=== PATIENT | female | born 1960 | race Caucasian/White ===

== ENCOUNTER → 2021-07-10 10:11 | Outpatient (BNVA) | payer BC, SELFPAY | PROVIDERS: Visit Provider Orthopaedic Surgery ==

== ENCOUNTER 2021-08-05 08:22 | Outpatient (REF) | payer BC, SELFPAY ==
--- NOTE | ~2021-08-05 | XR_ITS ---
EXAMINATION: BILATERAL KNEE X-RAY CLINICAL INFORMATION: Pain COMPARISON: None TECHNIQUE: Standing AP view of both knees and lateral and sunrise view of the left knee FINDINGS: Left knee: There is mild varus angulation at the knee joint. No fracture or dislocation is seen. There is arthritis of the medial femoral tibial and patellofemoral joints with joint space narrowing and osteophyte formation. There is a large joint effusion. Standing AP view of the right knee demonstrates a right knee replacement. XR/XR knee standing BI IMPRESSION: Left knee: Mild varus angulation. Arthritis and large joint effusion.
--- NOTE | ~2021-08-05 | XR_ITS ---
EXAMINATION: BILATERAL KNEE X-RAY CLINICAL INFORMATION: Pain COMPARISON: None TECHNIQUE: Standing AP view of both knees and lateral and sunrise view of the left knee FINDINGS: Left knee: There is mild varus angulation at the knee joint. No fracture or dislocation is seen. There is arthritis of the medial femoral tibial and patellofemoral joints with joint space narrowing and osteophyte formation. There is a large joint effusion. Standing AP view of the right knee demonstrates a right knee replacement. XR/XR knee LT 2V IMPRESSION: Left knee: Mild varus angulation. Arthritis and large joint effusion.
== END 2021-08-05 08:23 | disposition home or self-care (01) ==
LOC: HO.HOSX 08:22
PROVIDERS: Visit Provider Physician Assistant
DX: M17.12 Unilateral primary osteoarthritis, left knee (principal); M25.562 Pain in left knee; M25.561 Pain in right knee
CPT/HCPCS: 73560; 73565

== ENCOUNTER 2021-08-21 08:17 | Outpatient (REF) | payer OTHER, BC, SELFPAY ==
--- NOTE | ~2021-08-21 | XR_ITS ---
EXAMINATION: XR FOOT, RIGHT CLINICAL INFORMATION: Displaced fracture of the fifth metatarsal bone COMPARISON: Previous outside x-ray July 2021 TECHNIQUE: AP, lateral, and oblique views of the right foot. FINDINGS: There is a nondisplaced fracture through the base of the fifth metatarsal bone. Fracture line may be more indistinct suggestive of evidence of healing. No other fracture is seen. There is mild arthritis at the first MTP joint with joint space narrowing and osteophyte formation. There is a small plantar calcaneal spur. XR/XR foot RT min 3V IMPRESSION: Healing nondisplaced fracture base of the fifth metatarsal bone.
== END 2021-08-21 08:18 | disposition home or self-care (01) ==
LOC: HO.HOSX 08:17
PROVIDERS: Visit Provider Orthopaedic Surgery
DX: S92.353A Displaced fracture of fifth metatarsal bone, unspecified foot, initial encounter for closed fracture (principal)
CPT/HCPCS: 73630; 99212

== ENCOUNTER 2021-09-17 10:12 | Outpatient (REF) | payer BC, OTHER, SELFPAY ==
--- NOTE | ~2021-09-17 | XR_ITS ---
EXAMINATION: XR FOOT, RIGHT CLINICAL INFORMATION: Displaced fracture of the fifth metatarsal bone COMPARISON: 08/21/2021 TECHNIQUE: AP, lateral, and oblique views of the right foot. FINDINGS: Transverse fracture at the base of the fifth metatarsal bone is less conspicuous than the prior study with increased callus formation, compatible with healing. There is anatomic alignment. There is diffuse osteopenia. There is narrowing of the DIP and PIP joint spaces. There is narrowing and subchondral cystic change of the first metatarsophalangeal joint. There is mild narrowing of the intertarsal joint spaces. Overlying soft tissues are intact. XR/XR foot RT min 3V IMPRESSION: Healing fracture at the base of the fifth metatarsal bone in anatomic alignment. Osteopenia and degenerative changes of the right foot.
== END 2021-09-17 10:13 | disposition home or self-care (01) ==
LOC: HO.HOSX 10:12
PROVIDERS: PCP Internal Medicine; Visit Provider Orthopaedic Surgery
DX: S92.353D Displaced fracture of fifth metatarsal bone, unspecified foot, subsequent encounter for fracture with routine healing (principal); M17.12 Unilateral primary osteoarthritis, left knee
CPT/HCPCS: 73630

== ENCOUNTER 2021-10-09 13:28 | Outpatient (REF) | payer BC, SELFPAY | END 2021-10-09 13:29 | disposition home or self-care (01) | LOC: HO.LNP 13:28 | PROVIDERS: Visit Provider Orthopaedic Surgery | DX: Z13.89 Encounter for screening for other disorder (principal) ==

== ENCOUNTER → 2021-10-15 10:17 | Outpatient (BNVA) | payer BC, SELFPAY | PROVIDERS: Visit Provider Physician Assistant ==

== ENCOUNTER 2021-10-20 06:09 | Inpatient (IN) | payer BC, SELFPAY ==
[2021-10-09 12:31] VITALS: BP 134/67; PULSE 74; RESP 20; O2SAT 97; BMI 37.3
--- NOTE | 2021-10-09 12:52 | P.CONAN_ITS ---
Documented by User: Polly Martel NP 10/19/21 10:49 HPI - Anesthesia Eval Consult details Narrative: 61yo F for Left Knee Replacement Total PCP cleared [facility] Active Problems Active Problems: All Active Problems (Updated 10/09/21 @ 12:23 by Faby Kline RN) Tricompartment osteoarthritis of left knee (Acute) Fracture of fifth metatarsal bone (Acute) Past Medical History Medical History Anxiety and depression Fracture of fifth metatarsal bone GERD (gastroesophageal reflux disease) Hypothyroid Osteoarthritis Sleep apnea Family History Family history of problems with anesthesia: No Surgical History Surgical History H/O colonoscopy History of decompression of ulnar nerve History of detached retina repair History of dilatation and curettage History of esophagogastroduodenoscopy (EGD) History of salpingectomy History of total right knee replacement Hx of appendectomy Hx of arthroscopy of right knee Hx of elbow surgery Hx of tonsillectomy History of Problems with Anesthesia: No Social History Social History Are you a primary home care associate to a significant other at home: No Do you presently have visiting nurse or other home services: No Patient Tobacco Use Status: Never used Tobacco Use of substances other than those prescribed or required for medical reasons: No Have you been hit, kicked, punched, or otherwise hurt by someone within the past year? If so, by whom?: No Are you DNR?: No Advance Directives: No Advance Directives Information Provided: Yes (refused informational brochure) Advance Directives on File: No Recently lost weight without trying: No Eating poorly because of decreased appetite: No Nutrition Risks: No Nutritional Risk Poor oral hygiene: No Current occupational status: employed Current occupation: [employer] Narrative Narrative: No recent illness Activity limited to pain. No CP/SOB with minimal activity Meds Allergies Allergy/AdvReac Type Severity Reaction Status Date / Time fish derived [fish] Allergy Severe anaphylaxis Verified 10/15/21 10:36 (anchovies) lamotrigine Allergy Intermediate Difficulty Verified 10/15/21 10:36 Breathing Penicillins Allergy Intermediate itch Verified 10/15/21 10:36 Peppers, Jalapeno Allergy Intermediate vomiting/di Verified 10/15/21 10:36 arrhea Sulfa (Sulfonamide Allergy Intermediate bleeding Verified 10/15/21 10:36 Antibiotics) of eye w/sulfa eye drops Home Medications Medication Instructions Recorded Confirmed Last Taken Type bupropion HCl 300 mg 24 hr tablet, 1 tab PO DAILY 10/08/21 10/08/21 Unknown History extended release ipratropium bromide 42 mcg (0.06 1 spray INTRANASAL DAILY 10/08/21 10/08/21 Unknown History %) nasal spray levothyroxine 25 mcg tablet 25 mcg PO 5XW 10/08/21 10/08/21 Unknown History levothyroxine 25 mcg tablet 50 mcg PO 2XW 10/08/21 10/08/21 Unknown History lorazepam 0.5 mg tablet 0.5 tab PO QAM 10/08/21 10/09/21 Unknown History multivitamin 1 tab PO DAILY 10/08/21 10/08/21 Unknown History venlafaxine 75 mg capsule,extended 1 cap PO DAILY 10/08/21 10/08/21 Unknown History release 24 hr acetaminophen 650 mg 1,300 mg PO Q12H 10/09/21 10/09/21 Unknown History tablet,extended release omeprazole 20 mg capsule,delayed 20 mg PO DAILY 10/09/21 10/09/21 Unknown History release Exam Exam Date and Time: October 09, 2021 1252 Height,Weight and Vital Signs: Height 5 ft 6 in Weight 105 kg Last Vital Signs Pulse 74 10/09/21 12:31 Resp 20 10/09/21 12:31 BP 134/67 10/09/21 12:31 Pulse Ox 97 10/09/21 12:31 Pertinent Lab Results Pertinent Lab Results: Laboratory Tests 10/09/21 13:35 Blood Type A Positive Antibody Screen NEGATIVE 09/2021 BMP and CBC done at outside facility WNL Narrative Narrative: EKG 09/2021 NSR @ 65 Airway Loose/Missing/Broken Teeth: No (2 x implants - lower) Heart: RRR Lungs: CTAB Assessment and Plan Assessment Anesthesia Assessment: Anesthesia Plan Discussed and PAT Visit Final Anesthetic Review Family History of Problems with Anesthesia: No History of Problems with Anesthesia: No Documented by User: Wesley Levine MD 10/20/21 08:36 [facility] Past Medical History Medical History Anxiety and depression Fracture of fifth metatarsal bone GERD (gastroesophageal reflux disease) Hypothyroid Osteoarthritis Sleep apnea Surgical History Surgical History H/O colonoscopy History of decompression of ulnar nerve History of detached retina repair History of dilatation and curettage History of esophagogastroduodenoscopy (EGD) History of salpingectomy History of total right knee replacement Hx of appendectomy Hx of arthroscopy of right knee Hx of elbow surgery Hx of tonsillectomy Social History Social History Are you a primary home care associate to a significant other at home: No Do you presently have visiting nurse or other home services: No Patient Tobacco Use Status: Never used Tobacco Use of substances other than those prescribed or required for medical reasons: No Have you been hit, kicked, punched, or otherwise hurt by someone within the past year? If so, by whom?: No Are you DNR?: No Advance Directives: No Advance Directives Information Provided: Yes (refused informational brochure) Advance Directives on File: No Recently lost weight without trying: No Eating poorly because of decreased appetite: No Nutrition Risks: No Nutritional Risk Poor oral hygiene: No Current occupational status: employed Current occupation: [employer] Meds Allergies Allergy/AdvReac Type Severity Reaction Status Date / Time fish derived [fish] Allergy Severe anaphylaxis Verified 10/15/21 10:36 (anchovies) lamotrigine Allergy Intermediate Difficulty Verified 10/15/21 10:36 Breathing Penicillins Allergy Intermediate itch Verified 10/15/21 10:36 Peppers, Jalapeno Allergy Intermediate vomiting/di Verified 10/15/21 10:36 arrhea Sulfa (Sulfonamide Allergy Intermediate bleeding Verified 10/15/21 10:36 Antibiotics) of eye w/sulfa eye drops Home Medications Medication Instructions Recorded Confirmed Last Taken Type bupropion HCl 300 mg 24 hr tablet, 1 tab PO DAILY 10/08/21 10/08/21 Unknown History extended release ipratropium bromide 42 mcg (0.06 1 spray INTRANASAL DAILY 10/08/21 10/08/21 Unknown History %) nasal spray levothyroxine 25 mcg tablet 25 mcg PO 5XW 10/08/21 10/08/21 Unknown History levothyroxine 25 mcg tablet 50 mcg PO 2XW 10/08/21 10/08/21 Unknown History lorazepam 0.5 mg tablet 0.5 tab PO QAM 10/08/21 10/09/21 Unknown History multivitamin 1 tab PO DAILY 10/08/21 10/08/21 Unknown History venlafaxine 75 mg capsule,extended 1 cap PO DAILY 10/08/21 10/08/21 Unknown History release 24 hr acetaminophen 650 mg 1,300 mg PO Q12H 10/09/21 10/09/21 Unknown History tablet,extended release omeprazole 20 mg capsule,delayed 20 mg PO DAILY 10/09/21 10/09/21 Unknown History release Exam Airway Mallampati Class: II TM Dist: >3cm Neck ROM: Full Assessment and Plan Final Anesthetic Review ASA Class: III Final Preanesthetic Review: No Changes in Pt Med Stat, Meds/Allgs Chart Reviewed, Consent Obtained/Reviewed and Anes Risks/Benef Reviewed Patient Risk: Intermediate Procedure Risk: Intermediate Anesthetic Plan Anesthetic Plan: MAC:, Spinal and Regional Block Disposition: Standard PACU
[2021-10-09 15:56] LABS: MRSA Nasal PCR NEGATIVE (Negative); SA Nasal PCR NEGATIVE (Negative)
[2021-10-20] VITALS (18 sets, daily range): BP systolic 116–163; BP diastolic 53–93; PULSE 56–72; RESP 16–20; TEMP 36.4–37.1; O2SAT 94–99
--- NOTE | ~2021-10-20 | XR_ITS ---
EXAMINATION: XR KNEE, LEFT CLINICAL INFORMATION: Left knee pain postop. COMPARISON: None TECHNIQUE: 3 views of the left knee. FINDINGS: There are immediate postoperative changes following total knee prosthesis with the prosthetic components in satisfactory alignment. No fracture seen. XR/XR knee LT 2V IMPRESSION: Total left knee prosthesis with prosthetic components in satisfactory alignment. There are immediate postoperative changes visualized.
[2021-10-20 06:40] LABS: COVID-19 Test Negative (Negative); IDNOW Serial# 9DD0AD1C
[2021-10-20] MEDS: Lactated Ringers 1,000 ML 100 ML IVCONT (06:59)
[2021-10-20] MEDS: ceFAZolin Sodium/Dextrose,Iso 2 GM/50 ML PIGGYBACK IV ×2 (08:06→13:30)
--- NOTE | 2021-10-20 10:41 | MHC.SHP ---
Pre-Procedural Eval Section A Date of Service: 10/20/21 The patient is an INPATIENT: No Changes since office visit: Yes Patient answered all questions; No Cold of Flu in the past 2 weeks, No New Medical Problems and No Changes in Medication The History & Physical has been completed within 30 days and I have reviewed it.: Yes Section B Chief Complaint: Osteoarthritis Left Knee Allergies: Allergies Allergy/AdvReac Type Severity Reaction Status Date / Time fish derived [fish] Allergy Severe anaphylaxis Verified 10/15/21 10:36 (anchovies) lamotrigine Allergy Intermediate Difficulty Verified 10/15/21 10:36 Breathing Penicillins Allergy Intermediate itch Verified 10/15/21 10:36 Peppers, Jalapeno Allergy Intermediate vomiting/di Verified 10/15/21 10:36 arrhea Sulfa (Sulfonamide Allergy Intermediate bleeding Verified 10/15/21 10:36 Antibiotics) of eye w/sulfa eye drops Plan I have reviewed the history and physical and performed a pertinent physical examination on my patient. No changes have occurred unless specified.
--- NOTE | 2021-10-20 10:41 | PM.OP ---
Brief Operative Note Date of Service: 10/20/21 Pre-op diagnosis: left knee oa Post-op diagnosis: same Procedure: Left TKA Implants: Stryler triathalon CR press fit Surgeon: Gerson Germain MD Anesthesia: regional and spinal Was an Electrical Transmission Engineer used for this Procedure?: Yes Electrical Transmission Engineer: Chao Wheeler Estimated blood loss (mL): 200 IV fluids (mL): 1,000 Pathology: other Condition: stable Disposition: PACU
--- NOTE | 2021-10-20 10:44 | P.OP_ITS ---
Operative Note Operative Note Date of Service: 10/20/21 Narrative: Date of Service: 10/20/21 Pre-op diagnosis: left knee oa Post-op diagnosis: same Procedure: Left TKA Implants: Stryler triathalon CR press fit Surgeon: Gerson Germain MD Anesthesia: regional and spinal Was an Merit System Director used for this Procedure?: Yes Merit System Director: Chao Wheeler Estimated blood loss (mL): 200 IV fluids (mL): 1,000 Pathology: other Condition: stable Disposition: PACU Procedure in detail: The patient was brought to the operating room and prepped and draped in standard sterile fashion. A time-out was called to identify proper site proper procedure proper surgeon and IV antibiotics were administered. 1 g of IV tranexamic acid WAS administered. I began by making a midline incision to the retinaculum and performed a medial parapatellar arthrotomy. The patella was translated laterally and the knee was flexed up. The anterior and medial compartments were eburnated with large patellar osteophytes and 10 deg of varus iwth a 5 deg flexion contracture. I performed a small medial peel and resected the infrapatellar fat pad. Blanche's line was then used to drill my intramedullary femoral guide and an 11 mm distal femoral cut was made in 5 degrees of valgus while protecting the soft tissues. I then measured a # 4 femur and placed my cutting guide and made my anterior posterior and chamfer cuts protecting the soft tissues at all times. Once I was satisfied with my cuts I turned my attention to the tibia. I removed the meniscus and , using an external cutting guide, in line with the tibial crest and the third ray, I made my distal tibial cut in 3 deg slope of while protecting the PCL the posterior soft tissues at all times. An extension block was used to confirm appropriate amount of bony resection. I then sized a #5 tibia and once I was satisfied that there was complete tibial coverage I placed my trial and with the trial femur in place took the knee through range of motion. I was satisfied with the extension and flexion as well as the stability at 0, 30 and 90 degrees. I then turned my attention to the patella where I removed 1 cm from the undersurface of the patella and then trialed a 32a patellar button. Again the knee was taken through range of motion I was satisfied with the tracking. I then returned to the femur and drilled my femoral lug holes and prepared the tibia. A femoral bone plug was placed and the knee was irrigated copiously. I then press fit the patella, tibia and femur in standard fashion. I trialed different inserts until I selected a #12mm insert. The final insert was placed and a 3 minutes iodine soak with local TXA was performed. The knee was then closed with a running Quill suture, a 3 0 Vicryl and edanna on the skin. Patient was then placed in sterile dressing and brought to recovery room in stable condition there were no known complications.
[2021-10-20] MEDS: Dextrose 5 % and 0.45 % NaCl 1,000 ML 80 ML IVCONT ×2 (11:38→22:44)
[2021-10-20] MEDS: HYDROmorphone HCl 0.5 MG/0.5 ML SYRINGE 0.25 MG IVPUSH ×2 (15:39→21:40)
[2021-10-20] MEDS: oxyCODONE HCl Immed Release 5 MG TABLET PO (15:50)
[2021-10-20] MEDS: oxyCODONE HCl Immed Release 5 MG TABLET 10 MG PO ×2 (18:37→22:43)
[2021-10-20] MEDS: Celecoxib 200 MG CAPSULE PO (21:30)
[2021-10-20] MEDS: Docusate Sodium 100 MG CAPSULE PO (21:31)
[2021-10-20] MEDS: oxyCODONE HCl ER 10 MG TAB.ER.12H PO (21:31)
[2021-10-21] VITALS (8 sets, daily range): BP systolic 120–141; BP diastolic 63–69; PULSE 73–83; RESP 17–19; TEMP 36–37.1; O2SAT 92–95
[2021-10-21] MEDS: oxyCODONE HCl Immed Release 5 MG TABLET 10 MG PO ×6 (01:11→20:14)
[2021-10-21] MEDS: diphenhydrAMINE HCL 25 MG TABLET 50 MG PO (02:41)
[2021-10-21 05:45] LABS: MANUAL DIFF FLAG NO
[2021-10-21 05:50] LABS: Basophils Percent Auto 0.2 % (0-2); Eosinophils Percent Auto 0.5 % (0-4); Hematocrit 33.7 % (37.0-47.0); Hemoglobin 10.7 g/dl (12.0-16.0); Imm Gran Abs Auto 0.03 X10*3/uL (0.00-0.03); Imm Gran Pct Auto 0.3 % (0.0-0.4); Lymphocytes Absolute Auto 1.9 X10*3/uL (1.2-4.9); Lymphocytes Percent Auto 21.2 % (20-40); Mean Corpuscular HGB Conc 31.8 g/dl (31.0-35.0); Mean Corpuscular Hemoglobin 30.3 pg (27.0-33.0); Mean Corpuscular Volume 95.5 fL (80.0-98.0); Monocytes Absolute Auto 0.9 X10*3/uL (0.1-1.2); Monocytes Percent Auto 10.6 % (2-11); Neutrophils Absolute Auto 5.9 x10*3/uL (2.0-8.3); Neutrophils Percent Auto 67.2 % (45-73); Platelet Count 241 X10*3/uL (160-400); Red Blood Count 3.53 X10*6/uL (4.20-5.50); Red Cell Distribution Width 13.1 % (11.0-16.0); White Blood Count 8.8 X10*3/uL (4.8-10.8)
[2021-10-21 06:07] LABS: Anion Gap 9 (12-20); Blood Urea Nitrogen 19 mg/dL (9-16); Calcium 8.5 mg/dL (8.4-10.2); Carbon Dioxide 30 mmol/L (22-29); Chloride 106 mmol/L (96-108); Creatinine Clr Calc Pharmacy 85.1; Estimated Glomerular Filt Rate > 60; Glucose Fasting 113 mg/dL (60-99); Potassium 3.7 mmol/L (3.3-5.1); Sodium 141 mmol/L (135-145)
[2021-10-21] MEDS: Levothyroxine Sodium 25 MCG TABLET PO (06:27)
[2021-10-21] MEDS: Omeprazole 20 MG CAPSULE.DR PO (06:27)
[2021-10-21] MEDS: LORazepam 0.5 MG TABLET 0.25 MG PO (08:17)
[2021-10-21] MEDS: oxyCODONE HCl ER 10 MG TAB.ER.12H PO ×2 (08:17→20:14)
[2021-10-21] MEDS: Venlafaxine HCl ER 75 MG CAP.ER.24H PO (08:17)
--- NOTE | 2021-10-21 08:17 | PM.PNORT ---
Subjective Subjective Date of Service: 10/21/21 Interval history: POD1 Status post left knee TKA with Dr. Germain. Patient states that overnight she was having some difficulty with pain management. Pain medication was adjusted overnight accordingly. Patient worked with Physical therapy this morning and stated that she did very well. Her pain is managed this morning. She reports that she is still feeling itchy despite ordering Benadryl last night. Physical Exam Vital Signs: Vital Signs: Last Vital Signs Temp 98.7 F 10/21/21 00:09 Pulse 73 10/21/21 07:48 Resp 18 10/21/21 05:43 BP 141/68 H 10/21/21 07:48 Pulse Ox 92 10/21/21 07:48 BMI result Body Mass Index 37.3 Const: General: cooperative, healthy appearing and no acute distress Resp: Effort & Inspection: normal respiratory effort and able to speak in complete sentences Cardio: Rate: regular rate Peripheral pulses: Peripheral pulses 2+ throughout GI: Palpation (GI): Soft to palpation Skin: Lesions: no lesions Rashes: no rashes Extrem: Other: Left knee Aquacel is clean dry and intact. No effusion or drainage. Patient is able to dorsiflex and plantar flex without any deficits. Pedal pulse intact. Sensation intact. Procedures Date of Service Date of Service: 10/21/21 Progress Note: A&P Assessment and plan (1) S/P total knee arthroplasty: Status: Acute Assessment and Plan: Continue pain mgmnt Begin ASA for dvt ppx begin PT for LT TKA Dispo planning-Pending PT eval, pain mgmnt Fall Risk Details Current Medications: Current Medications Acetaminophen (Acetaminophen 325 Mg Tablet) 650 mg PO Q6H PRN PRN Reason: Pain, Mild (Pain Scale 1-3) Aspirin (Aspirin 325 Mg Tablet) 325 mg PO BID [facility] Bupropion HCl (Bupropion Hcl Xl 300 Mg Tab.Er.24h) 300 mg PO DAILY [facility] Celecoxib (Celecoxib 200 Mg Capsule) 200 mg PO BID [facility] Last Admin: 10/20/21 21:30 Dose: 200 mg Documented by: Docusate Sodium (Docusate Sodium 100 Mg Capsule) 100 mg PO BID [facility] Last Admin: 10/20/21 21:31 Dose: 100 mg Documented by: Hydromorphone HCl (Hydromorphone Hcl 0.5 Mg/0.5 Ml Syringe) 0.5 mg IVPUSH Q4H PRN; Protocol PRN Reason: Pain, Severe (Pain Scale 7-10) Dextrose/Sodium Chloride (D51/2ns) 1,000 mls @ 80 mls/hr IVCONT .[id number] [facility] Last Admin: 10/20/21 22:44 Dose: 80 mls/hr Documented by: Ipratropium [place] (Ipratropium [place] Celest[place] 0.06 % 15 Ml [place]) 1 spray NOSTRIL-B DAILY [facility] Levothyroxine Sodium (Levothyroxine Sodium 25 Mcg Tablet) 25 mcg PO MoTuWeThFr@0600 [facility] Last Admin: 10/21/21 06:27 Dose: 25 mcg Documented by: Levothyroxine Sodium (Levothyroxine Sodium 50 Mcg Tablet) 50 mcg PO SuSa@0600 [facility] Lorazepam (Lorazepam 0.5 Mg Tablet) 0.25 mg PO DAILY [facility] Omeprazole (Omeprazole 20 Mg Capsule.Dr) 20 mg PO DAILY@0630 [facility] Last Admin: 10/21/21 06:27 Dose: 20 mg Documented by: Ondansetron HCl (Ondansetron Hcl 4 Mg/2 Ml Vial) 4 mg IVPUSH Q8H PRN PRN Reason: Nausea and Vomiting Oxycodone HCl (Oxycodone Hcl Er 10 Mg Tab.Er.12h) 10 mg PO BID [facility] Last Admin: 10/20/21 21:31 Dose: 10 mg Documented by: Oxycodone HCl (Oxycodone Hcl Immed Release 5 Mg Tablet) 10 mg PO Q4H [facility] Last Admin: 10/21/21 06:27 Dose: 10 mg Documented by: Sodium Chloride (0.9 % Sodium Chloride Flush 3 Ml Syringe) 3 ml IVFLUSH QSHIFT [facility] Last Admin: 10/21/21 01:12 Dose: Not Given Documented by: Venlafaxine HCl (Venlafaxine Hcl Er 75 Mg Cap.Er.24h) 75 mg PO DAILY [facility] Time Spent With Patient Time: Total time spent is greater than 50% in coordination of care (as documented) at patient's floor/unit and/or counseling patient: Time with patient: less than 15 minutes Quality Stroke Does the patient have a stroke diagnosis?: No VTE Prior VTE?: No VTE Risk Level:: Surgical - high VTE Device Contraindication: N/A - Device Ordered VTE Drug Contraindication: N/A - Med Ordered
[2021-10-21] MEDS: Celecoxib 200 MG CAPSULE PO ×2 (08:18→20:14)
[2021-10-21] MEDS: Aspirin 325 MG TABLET PO ×2 (08:18→20:14)
[2021-10-21] MEDS: Docusate Sodium 100 MG CAPSULE PO ×2 (08:18→20:14)
[2021-10-21] MEDS: buPROPion HCl XL 300 MG TAB.ER.24H PO (08:18)
--- NOTE | 2021-10-21 09:35 | HO.POSTANES ---
Post Anesthesia Evaluation Post Anesthesia Evaluation Vital Signs: Vital Signs Temp Pulse Resp BP Pulse Ox 10/21/21 07:48 73 141/68 H 92 10/21/21 05:43 18 10/21/21 00:09 98.7 F 73 19 141/68 H 92 10/20/21 22:17 70 20 133/64 94 Anesthesia: Spinal and Nerve Block Mental Status: Awake Pain Control: Satisfactory Nausea/Vomiting: None Hydration: Adequate Anesthesia-Related Issues: No Anes. Related Issues
--- NOTE | 2021-10-21 10:26 | MHC.CM.PN ---
EMR REVIEWED, PT S/P L TKA, CM MET W/PT WHO IS A&OX4, PT REPORTS SHE LIVES ALONE IN AN APT AND HAS ONE STEP TO GET IN AND A HALF BATH ON THE FIRST FLOOR, PT REPORTS SHE WILL SLEEP ON HER PULL OUT SOFA SO SHE DOES NOT HAVE TO DO THE STAIRS TO GET TO HER BEDROOM, PT HAS A CANE AND WALKER FOR DME, NO HOME SERVICES AND PREFERS TO D/C HOME W/SERVICES, PT REPORTS SHE HAS NO PREFERENCE OF VNA'S HOWEVER DID USE [facility] FOR HER R KNEE, PT IS OK W/ANY [facility]NA SERVICE, PT VERIFIES PCP STAN ACEVEDO AND WOULD LIKE TO COMPLETE A HCP W/CM PRIOR TO D/C. D/C PLAN: HOME W/[facility] HOME PT, FRIEND/FAMILY FR TRANSPORT
--- NOTE | 2021-10-21 11:42 | PM.IMCN ---
History of Present Illness Data of Consult Service Date: 10/21/21 Primary Care Provider: Randa Wick MD HPI Reason for consult: left knee pain 61F presented for elected left tka, medicine consulted for comorbidities of hypothyroid, depression/anxiety, GERD. patient reporting some pruritis with oxycodone, otherwise doing well postop, denies chest pain, fever, chills, sob. Review of Systems Review of Systems: Constitutional: Denies fever, denies Chills Eyes: denies blurry vision ENT: denies sore throat CVS: denies chest pain Respiratory: Denies dyspnea GI: no abdominal pain : denies dysuria MSK: denies neck pain Skin: denies rash Neuro: denies specific motor weakness Psych: denies suicidal ideation Endocrine: denies heat/cold intolerance Hematologic: denies easy bleeding Allergy: denies hives [facility] Medical History (Updated 10/21/21 @ 11:45 by Yfn Bowling MD) Anxiety and depression Fracture of fifth metatarsal bone GERD (gastroesophageal reflux disease) Hypothyroid Osteoarthritis Sleep apnea Pertinent family history: denies premature cad Surgical History H/O colonoscopy History of decompression of ulnar nerve History of detached retina repair History of dilatation and curettage History of esophagogastroduodenoscopy (EGD) History of salpingectomy History of total right knee replacement Hx of appendectomy Hx of arthroscopy of right knee Hx of elbow surgery Hx of tonsillectomy Social History Household Members: None Housing: Apartment Are you a primary healthcare consulting manager to a significant other at home: No Do you presently have visiting nurse or other home services: No Patient Tobacco Use Status: Never used Tobacco service: No Current occupational status: employed Current occupation: [employer]/rt handed Meds Allergies Allergy/AdvReac Type Severity Reaction Status Date / Time fish derived [fish] Allergy Severe anaphylaxis Verified 10/15/21 10:36 (anchovies) lamotrigine Allergy Intermediate Difficulty Verified 10/15/21 10:36 Breathing Penicillins Allergy Intermediate itch Verified 10/15/21 10:36 Peppers, Jalapeno Allergy Intermediate vomiting/di Verified 10/15/21 10:36 arrhea Sulfa (Sulfonamide Allergy Intermediate bleeding Verified 10/15/21 10:36 Antibiotics) of eye w/sulfa eye drops Active Medications: Current Medications Acetaminophen (Acetaminophen 325 Mg Tablet) 650 mg PO Q6H PRN PRN Reason: Pain, Mild (Pain Scale 1-3) Aspirin (Aspirin 325 Mg Tablet) 325 mg PO BID [facility] Last Admin: 10/21/21 08:18 Dose: 325 mg Documented by: Bupropion HCl (Bupropion Hcl Xl 300 Mg Tab.Er.24h) 300 mg PO DAILY [facility] Last Admin: 10/21/21 08:18 Dose: 300 mg Documented by: Celecoxib (Celecoxib 200 Mg Capsule) 200 mg PO BID [facility] Last Admin: 10/21/21 08:18 Dose: 200 mg Documented by: Docusate Sodium (Docusate Sodium 100 Mg Capsule) 100 mg PO BID [facility] Last Admin: 10/21/21 08:18 Dose: 100 mg Documented by: Hydromorphone HCl (Hydromorphone Hcl 0.5 Mg/0.5 Ml Syringe) 0.5 mg IVPUSH Q4H PRN; Protocol PRN Reason: Pain, Severe (Pain Scale 7-10) Ipratropium [place] (Ipratropium [place] Celestino 0.06 % 15 Ml [place]) 1 spray NOSTRIL-B DAILY [facility] Last Admin: 10/21/21 08:14 Dose: Not Given Documented by: Levothyroxine Sodium (Levothyroxine Sodium 25 Mcg Tablet) 25 mcg PO MoTuWeThFr@0600 [facility] Last Admin: 10/21/21 06:27 Dose: 25 mcg Documented by: Levothyroxine Sodium (Levothyroxine Sodium 50 Mcg Tablet) 50 mcg PO SuSa@0600 [facility] Lorazepam (Lorazepam 0.5 Mg Tablet) 0.25 mg PO DAILY [facility] Last Admin: 10/21/21 08:17 Dose: 0.25 mg Documented by: Omeprazole (Omeprazole 20 Mg Capsule.) 20 mg PO DAILY@0630 [facility] Last Admin: 10/21/21 06:27 Dose: 20 mg Documented by: Ondansetron HCl (Ondansetron Hcl 4 Mg/2 Ml Vial) 4 mg IVPUSH Q8H PRN PRN Reason: Nausea and Vomiting Oxycodone HCl (Oxycodone Hcl Er 10 Mg Tab.Er.12h) 10 mg PO BID [facility] Last Admin: 10/21/21 08:17 Dose: 10 mg Documented by: Oxycodone HCl (Oxycodone Hcl Immed Release 5 Mg Tablet) 10 mg PO Q4H PRN PRN Reason: Pain, Moderate (Pain Scale 4-6 Last Admin: 10/21/21 11:38 Dose: 10 mg Documented by: Sodium Chloride (0.9 % Sodium Chloride Flush 3 Ml Syringe) 3 ml IVFLUSH QSHIFT [facility] Last Admin: 10/21/21 08:18 Dose: Not Given Documented by: Venlafaxine HCl (Venlafaxine Hcl Er 75 Mg Cap.Er.24h) 75 mg PO DAILY [facility] Last Admin: 10/21/21 08:17 Dose: 75 mg Documented by: Home Medications Medication Instructions Recorded Confirmed Last Taken Type bupropion HCl 300 mg 24 hr tablet, 1 tab PO DAILY 10/08/21 10/08/21 Unknown History extended release ipratropium bromide 42 mcg (0.06 1 spray INTRANASAL DAILY 10/08/21 10/08/21 Unknown History %) nasal spray levothyroxine 25 mcg tablet 25 mcg PO 5XW 10/08/21 10/08/21 Unknown History levothyroxine 25 mcg tablet 50 mcg PO 2XW 10/08/21 10/08/21 Unknown History lorazepam 0.5 mg tablet 0.5 tab PO QAM 10/08/21 10/09/21 Unknown History multivitamin 1 tab PO DAILY 10/08/21 10/08/21 Unknown History venlafaxine 75 mg capsule,extended 1 cap PO DAILY 10/08/21 10/08/21 Unknown History release 24 hr acetaminophen 650 mg 1,300 mg PO Q12H 10/09/21 10/09/21 Unknown History tablet,extended release omeprazole 20 mg capsule,delayed 20 mg PO DAILY 10/09/21 10/09/21 Unknown History release Physical Exam Vital Signs and Narrative: Vital Signs: Last Vital Signs Temp 98.3 F 10/21/21 10:00 Pulse 75 10/21/21 10:00 Resp 18 10/21/21 10:00 BP 133/63 10/21/21 10:00 Pulse Ox 95 10/21/21 10:00 BMI result Body Mass Index 37.3 General: no acute distress HEENT: atraumatic Neck: normal to visual inspection CVS: S1, S2, RRR Resp: CTA bilateral Chest: non tender GI: soft, non tender, non distended : no CVA tenderness Skin: no rashes Extremities: no edema Neuro: Oriented X3, grossly intact Psych: cooperative Results Labs CBC and Chem 7: 10/21/21 05:38 10/21/21 05:38 Labs: Laboratory Results - last 24 hr 10/21/21 10/21/21 05:38 05:38 MCV 95.5 MCH 30.3 MCHC 31.8 RDW 13.1 Plt Count 241 MPV 10.0 Immature Gran % (Auto) 0.3 Neut % (Auto) 67.2 Lymph % (Auto) 21.2 [place] % (Auto) 10.6 Eos % (Auto) 0.5 Baso % (Auto) 0.2 Lymph # (Auto) 1.9 [place] # (Auto) 0.9 Eos # (Auto) 0.0 Baso # (Auto) 0.0 Abs Immat Gran (auto) 0.03 Absolute Neuts (auto) 5.9 Absolute Nucleated RBC 0.000 Nucleated RBC % (auto) 0.0 Anion Gap 9 L Estim Creat Clear Calc 85.1 Estimated GFR > 60 Fasting Glucose 113 H Calcium 8.5 Assessment and Plan (1) Hypothyroid: Status: Acute 61F presented for elected left tka left tka pod 1 management per ortho depression/anxiety continue ativan, wellbutrin, effexor hypothyroid synthroid gerd ppi
--- NOTE | 2021-10-21 11:48 | MHC.CM.PN ---
CM MET W/PT TO COMPLETE HCP, PT PROVIDED EDUCATIONAL INFO AND HAS NAMED HER SISTER CLEMENTE ERAZO [phone] HER HEALTH CARE AGENT AND HER NIECE DAMARIS FREEMAN [phone] HER ALTERNATE.
--- NOTE | 2021-10-21 11:53 | PC.NURSE ---
Wound assessment completed. Patient had a left knee replacement, surgical incision and bandage C/D/I. No other skin issues noted at this time.
[2021-10-21] MEDS: Acetaminophen 325 MG TABLET 650 MG PO (14:29)
[2021-10-21] MEDS: 0.9 % Sodium Chloride Flush 3 ML SYRINGE IVFLUSH (15:57)
[2021-10-22] MEDS: 0.9 % Sodium Chloride Flush 3 ML SYRINGE IVFLUSH ×2 (01:11→08:33)
[2021-10-22] MEDS: oxyCODONE HCl Immed Release 5 MG TABLET 10 MG PO ×2 (01:13→08:33)
[2021-10-22 03:00] VITALS: BP 113/53; PULSE 75; RESP 18; TEMP 36.3; O2SAT 94
[2021-10-22 05:40] LABS: MANUAL DIFF FLAG NO
[2021-10-22 05:44] LABS: Basophils Absolute Auto 0.1 X10*3/uL (0.0-0.2); Basophils Percent Auto 0.8 % (0-2); Eosinophils Absolute Auto 0.2 X10*3/uL (0.0-0.4); Eosinophils Percent Auto 2.6 % (0-4); Hematocrit 31.2 % (37.0-47.0); Hemoglobin 10.1 g/dl (12.0-16.0); Imm Gran Abs Auto 0.03 X10*3/uL (0.00-0.03); Imm Gran Pct Auto 0.4 % (0.0-0.4); Lymphocytes Absolute Auto 1.8 X10*3/uL (1.2-4.9); Lymphocytes Percent Auto 21.3 % (20-40); Mean Corpuscular HGB Conc 32.4 g/dl (31.0-35.0); Mean Corpuscular Hemoglobin 30.6 pg (27.0-33.0); Mean Corpuscular Volume 94.5 fL (80.0-98.0); Mean Platelet Volume 10.4 fL (9.4-12.3); Monocytes Absolute Auto 0.8 X10*3/uL (0.1-1.2); Monocytes Percent Auto 9.5 % (2-11); Neutrophils Absolute Auto 5.6 x10*3/uL (2.0-8.3); Neutrophils Percent Auto 65.4 % (45-73); Platelet Count 219 X10*3/uL (160-400); Red Cell Distribution Width 13.2 % (11.0-16.0); White Blood Count 8.6 X10*3/uL (4.8-10.8)
[2021-10-22 06:07] LABS: Anion Gap 11 (12-20); Blood Urea Nitrogen 22 mg/dL (9-16); Calcium 8.3 mg/dL (8.4-10.2); Carbon Dioxide 25 mmol/L (22-29); Chloride 105 mmol/L (96-108); Creatinine Clr Calc Pharmacy 74.5; Estimated Glomerular Filt Rate 58; Glucose Fasting 111 mg/dL (60-99); Potassium 3.9 mmol/L (3.3-5.1); Sodium 137 mmol/L (135-145)
[2021-10-22] MEDS: Omeprazole 20 MG CAPSULE.DR PO (06:18)
[2021-10-22] MEDS: Levothyroxine Sodium 25 MCG TABLET PO (06:18)
[2021-10-22 07:00] VITALS: BP 153/67; PULSE 82; RESP 18; TEMP 36.6; O2SAT 95
--- NOTE | 2021-10-22 07:58 | PM.DS ---
DS: Providers Provider Date of Service: 10/22/21 Date of admission: 10/20/21 06:09 Primary care physician: Randa Wick MD Consults: 10/20/21 17:35 Consult to Hospitalist Routine Consulting Provider: Hospitalist Reason For Exam: post op medical management DS: Diagnosis Discharge Diagnosis (1) Hypothyroid: Status: Acute DS: Summary Hospital Course Hospital Course: The patient underwent a successful left total knee arthroplasty, they were transferred to PACU and then to the floor to recover. During their stay, their vitals were stable, afebrile at 97.0. Labs were unremarkable, H/H 10.1/31.2. POD 1 they were started on Aspirin 325mg po bid for DVT ppx, they also received Physical Therapy services twice a day. Prior to discharge, their dressing was changed, incision clean dry and intact, new Aquacel dressing applied and the plan was to be discharged home with VNA services. Time Spent with Patient Time attestation: Total time spent providing and/or coordinating discharge services: Discharge coordination time: Less than 30 minutes Quality: Stroke Does the patient have a stroke diagnosis?: No Physical Exam Vital Signs: Vital Signs: Last Vital Signs Temp 97.8 F 10/22/21 07:00 Pulse 82 10/22/21 07:00 Resp 18 10/22/21 07:00 BP 153/67 H 10/22/21 07:00 Pulse Ox 95 10/22/21 07:00 BMI result Body Mass Index 37.3 Const: General: cooperative, healthy appearing and no acute distress Resp: Effort & Inspection: normal respiratory effort and able to speak in complete sentences Cardio: Rate: regular rate Peripheral pulses: Peripheral pulses 2+ throughout GI: Palpation (GI): Soft to palpation Skin: Lesions: no lesions Rashes: no rashes Extrem: Other: Left knee not erythema or drainage. Prospect intact. New Aquacel dressing applied. NVI. DS: Data Data Completed and Pending Pending studies at discharge: Pending at discharge 10/20/21 09:58 Surgical [PTH] Routine Labs on day of discharge: Laboratory Results - last 24 hr 10/22/21 10/22/21 04:54 04:54 WBC 8.6 RBC 3.30 L Hgb 10.1 L Hct 31.2 L MCV 94.5 MCH 30.6 MCHC 32.4 RDW 13.2 Plt Count 219 MPV 10.4 Immature Gran % (Auto) 0.4 Neut % (Auto) 65.4 Lymph % (Auto) 21.3 [place] % (Auto) 9.5 Eos % (Auto) 2.6 Baso % (Auto) 0.8 Lymph # (Auto) 1.8 [place] # (Auto) 0.8 Eos # (Auto) 0.2 Baso # (Auto) 0.1 Abs Immat Gran (auto) 0.03 Absolute Neuts (auto) 5.6 Absolute Nucleated RBC 0.000 Nucleated RBC % (auto) 0.0 Sodium 137 Potassium 3.9 Chloride 105 Carbon Dioxide 25 Anion Gap 11 L BUN 22 H Creatinine 0.97 Estim Creat Clear Calc 74.5 Estimated GFR 58 Fasting Glucose 111 H Calcium 8.3 L Discharge Plan Discharge Patient Disposition: Home Health Service Discharge Diagnosis: s/p TKA LT Referrals: Walter QUINN [Outside] - 1 Day (home physical therapy) Chao Wheeler PA-C [Physician [employer]] - 1 Week (11/05/20 a 2:00pm and then will have PT in the office ) Discharge Medications: New acetaminophen 325 mg Tablet 650 mg PO Q6H PRN (Reason: Pain, Mild (Pain Scale 1-3)) 30 Days Qty: 240 RF: 0 aspirin 325 mg Tablet 325 mg PO BID 42 Days Qty: 84 RF: 0 celecoxib 200 mg Capsule 200 mg PO BID 30 Days Qty: 60 RF: 0 docusate sodium 100 mg Capsule 100 mg PO BID 30 Days Qty: 60 RF: 0 oxycodone 5 mg Tablet 10 mg PO Q4H PRN (Reason: Pain, Moderate (Pain Scale 4-6) 7 Days Qty: 42 RF: 0 Continued multivitamin Tablet 1 tab PO DAILY RF: 0 venlafaxine 75 mg capsule,extended release 24hr 1 cap PO DAILY RF: 0 levothyroxine 25 mcg tablet 25 mcg PO 5XW RF: 0 levothyroxine 25 mcg tablet 50 mcg PO 2XW RF: 0 lorazepam 0.5 mg tablet 0.5 tab PO QAM RF: 0 ipratropium bromide 42 mcg (0.06 %) spray,non-aerosol 1 spray intranasal DAILY RF: 0 bupropion HCl 300 mg tablet extended release 24 hr 1 tab PO DAILY RF: 0 acetaminophen 650 mg Tablet Extended Release 1,300 mg PO Q12H RF: 0 omeprazole 20 mg Capsule,Delayed Release(Dr/Ec) 20 mg PO DAILY RF: 0 Discharge Orders: Discharge Order (Routine); Ordered 10/22/21 Ordered By: Vivi Webb Diet: advance to usual diet Activity on Discharge: Use cane or walker Stand Alone Forms: Patient Portal Discharge page Care Plan Goals: Restore fxn to left knee Health Concerns: none Plan of Treatment: Physical Therapy for ROM 0-120, quad strength, gait training. Use walker for ambulation Limit stair climbing, No shower, No tub bath, No driving Continue anticoagulant Keep Aquacel dressing clean, dry and intact. Follow up with orthopedics in 2 weeks Assessment: stable for d/c
--- NOTE | 2021-10-22 07:59 | W.MHC.F2F ---
Service Date Service Date: 10/22/21 Reasons for Services Reason for physical therapy: home safety and mobility, therapeutic exercises, restore joint function, gait/transfer training, assess need for DME and ADL training Homebound: Leaving the home is medically contraindicated at this time without the asist of a device and/or another person due th the listed conditions above and below. Reason homebound: unsteady gait / fall risk, leg weakness, pain with ambulation, pain with transfers, poor balance / fall risk and unable to drive Homebound supporting statement: Pt. is considered homebound due to recent surgery. Unable to drive, poor balance, poor gait mechanics. Certification: Based on the above findings, I certify that this patient is confined to the home and needs intermittent fci care, physical therapy and/or speech therapy, or continues to need occupational therapy. The patient is under my care, and I have initiated the establishment of the plan of care. The patient will be followed by a physician who will periodically review the plan of care.
[2021-10-22] MEDS: Venlafaxine HCl ER 75 MG CAP.ER.24H PO (08:31)
[2021-10-22] MEDS: Aspirin 325 MG TABLET PO (08:31)
[2021-10-22] MEDS: buPROPion HCl XL 300 MG TAB.ER.24H PO (08:32)
[2021-10-22] MEDS: Docusate Sodium 100 MG CAPSULE PO (08:32)
[2021-10-22] MEDS: Celecoxib 200 MG CAPSULE PO (08:32)
[2021-10-22] MEDS: oxyCODONE HCl ER 10 MG TAB.ER.12H PO (08:33)
[2021-10-22 09:27] VITALS: BP 153/67; PULSE 82; O2SAT 95
--- NOTE | 2021-10-22 12:22 | MHC.CM.PN ---
PT DISCHARGING HOME W/HVNA FOR HOME PT W/SOC TOMORROW 10/23/21, PT HAS ASA BID FOR ANTICOAG, PT WILL CALL TO ARRANGE TRANSPORT.
== END 2021-10-22 13:35 | disposition home health service (06) | DRG 302 ==
LOC: HO.SSSA 06:14 → HO.S3 16:14
PROVIDERS: Physician Assistant; Admitting Provider Orthopaedic Surgery; PCP Internal Medicine; Visit Provider Orthopaedic Surgery
PROC: 0SRD0JA Replacement of Left Knee Joint with Synthetic Substitute, Uncemented, Open Approach (ICD-10-PCS; CPT 27447; principal; 2021-10-20 07:30)
DX: M17.12 Unilateral primary osteoarthritis, left knee (principal); F32.A Depression, unspecified; E03.9 Hypothyroidism, unspecified; F41.9 Anxiety disorder, unspecified; K21.9 Gastro-esophageal reflux disease without esophagitis; Z20.822 Contact with and (suspected) exposure to COVID-19; Z79.890 Hormone replacement therapy; Z88.0 Allergy status to penicillin; Z88.2 Allergy status to sulfonamides; Z79.899 Other long term (current) drug therapy
CPT/HCPCS: 36415; 73560; 80048; 85025; 86850; 86900; 86901; 87635; 87640; 87641; 88305; 88311; 97110; 97116; 97162; C1776; J0131; J0690; J1100; J1170; J2250; J2550; Q0163

== ENCOUNTER → 2021-11-05 13:46 | Outpatient (BNVA) | payer BC, SELFPAY | PROVIDERS: Visit Provider Physician Assistant ==

== ENCOUNTER → 2021-12-03 13:31 | Outpatient (BNVA) | payer BC, SELFPAY | PROVIDERS: Visit Provider Physician Assistant ==

== ENCOUNTER 2022-01-14 08:49 | Outpatient (REF) | payer BC, SELFPAY ==
--- NOTE | ~2022-01-14 | XR_ITS ---
EXAMINATION: XR knee LT 2V, XR knee standing BI CLINICAL INFORMATION: Pain COMPARISON: Knee radiographs 02/24/2021 TECHNIQUE: 2 views of the knee, left. 1 view of the bilateral knees. XR/XR knee standing BI FINDINGS/IMPRESSION: No acute fracture or dislocation. Status post left total knee arthroplasty in anatomic alignment. No evidence of hardware fracture or complication. Small left suprapatellar joint effusion. Status post right total knee arthroplasty only appreciated on a single view. Soft tissues are unremarkable.
--- NOTE | ~2022-01-14 | XR_ITS ---
EXAMINATION: XR knee LT 2V, XR knee standing BI CLINICAL INFORMATION: Pain COMPARISON: Knee radiographs 02/24/2021 TECHNIQUE: 2 views of the knee, left. 1 view of the bilateral knees. XR/XR knee LT 2V FINDINGS/IMPRESSION: No acute fracture or dislocation. Status post left total knee arthroplasty in anatomic alignment. No evidence of hardware fracture or complication. Small left suprapatellar joint effusion. Status post right total knee arthroplasty only appreciated on a single view. Soft tissues are unremarkable.
== END 2022-01-14 08:50 | disposition home or self-care (01) ==
LOC: HO.HOSX 08:49
PROVIDERS: Visit Provider Orthopaedic Surgery
DX: Z47.1 Aftercare following joint replacement surgery (principal); Z96.652 Presence of left artificial knee joint
CPT/HCPCS: 73560; 73565

== ENCOUNTER 2022-01-28 14:00 | Outpatient (RCR) | payer BC, SELFPAY ==
--- NOTE | 2021-11-05 15:14 | MHC.PT.EP ---
[facility] [place] Office [place] Office [place] Office [address] Harlan Cardenas [address] [phone] F: [phone] F: [phone] F: [phone] F: [phone] Physical Therapy Plan of Care Date of Evaluation: Date of Surgery: 10/20/21 Diagnosis: S/P LEFT TKA Assessment: 61 yo female referred to PT s/p TKA on 10/20/21. She was d/c'd home 10/22/21 and had home pt through 11/04/21. she resides alone and has 16 stairs in her duplex apt. She has post-op left knee pain, (+) psoas and calf tightness, decreased range of motion, decreased strength, impaired functional mobility, and gait deviations (decr stride length and stance time left LE). Pt is a great candidate for skilled PT to address the above findings and guide her along her TKA post-op course and maximize her functional independence. Pt would benefit from tailored strengthening and stretching exercise program, functional training, gait training, postural re-training, neuromuscular re-education, and pain management. [ End ] Frequency and Duration: The patient will be seen 2 x WK x 6 WKS Short Term Goals: Pt DEMON PROPER QUAD SET IN 1 WK Pt'S LEFT KNEE PAIN DECREASED TO 2-3/10 IN 2 WKS Pt DEMON AROM LEFT KNEE 0* TO 115* AND WFL LEFT PSOAS FLEXIBILITY IN 3 WKS Pt DEMO IMPROVED GAIT MECH W LEAST REST AD ON LEVEL GROUND AND STAIRS IN 2 WKS Assisted Goals: Pt INDEP W HEP PROGRESSION AND SELF-SX MGMT STRATEGIES IN 5 WKS Pt RESUME REG ADLs EVIDENT W IMPROVED LEFI SCORE BY 8-10 POINTS (AT EVAL ) IN 6 WKS Pt INCR LE STRENGTH BY 1 GRADE IN 6 WKS Treatment Plan: Modalities to reduce pain, spasms and effusion. Manual therapy to restore motion and function. Therapeutic exercise to improve strength and flexibility. Neuromuscular re-education for posture and balance. Therapeutic activities to return to functional activities of daily living. Electronically signed by: Dionna Bre,PT Please sign and return to therapist. Thank you for your referral.
--- NOTE | 2021-12-01 08:39 | MHC.PT.OD ---
[facility] [place] Office [place] Office [place] Office [address] Harlan Cardenas [address] [phone] F: [phone] F: [phone] F: [phone] F: [phone] Physical Therapy Daily Note Diagnosis: S/P LEFT TKA Date of Surgery: 10/20/21 Date of Evaluation: 11/05/21 Date of Treatment: 11/30/21 Treatments to Date: 9 Cancellations to Date: 0 No Shows to Date: 0 Authorized Visits: 99 Insurance End Date: Precautions/ Contraindications:H/O RIGHT TKA Subjective: Reports slept in her own bed since surgery, is now only taking tylenol for pain relief (off narcotics), hoping to gain clearance for driving. Continues to bilingual patient support caseworker, presents to office without cane today, I didnt feel like I needed it. (Pt educated in importance of being careful outdoors snow/ice/ std cane as precaution) Pain Score and Location: 0 L KNEE Objective Flowsheet: Tests & Measures AAROM 0> flexion to 120 with strap supine. Good strength with SLR. Exercises Scifit bike started seat #8 X 10 MIN level 2.5 . Step-up and step-down 2 inch> 4inch>6 inch x 3 sets 10R, step-down 2 inch>4 inch>6 inch step x 3 sets 10R, SLR x 2 sets 10R, LAQ standing heel touch x 2 sets 10R, standing frontal heel touch x 2 inch step x 3 sets 10R, AAROM heel slide in supine with strap x 10R to 120. standing step up 4 inch, and 6 inch with bilateral rail while leading with L LE x 10R, (leading with L LE up AND R LE DOWN), STANDING B HEEL RAISE X 20, PARTIAL SQUAT X 10 AT ELEV PLINTH , STANDING CALF STRETCH B Step down forward 2 inch, 4 inch, 6 inch x 2 sets 10R (stepping down with R LE first) with use of UE for bilateral support Education for CFM to incision care, self care x 10 minutes STM applied to distal quad while performing AAROM flexion to 120 combo with strap Pt would benefit from review of prone hip ext, SL hip add, SL hip abd for HEP Modalities Ice pack applied for knee extension stretch x 10 minutes at end of session with 5# weight over knee Assessment: Pt doing extremely well in PT, AROM 0 AAROM to 120 flexion. Presents to office today independent of std cane scar well healed no steri-strips remain fully closed incision, reports has D/C narcotics and is only taking tylenol for pain relief. Has resumed sleeping upstairs in her own bed and is compliant with HEP. SLR strength is good. Will continue progression of CKC and higher level balance/strength moving forward in PT. Pt to see Dr. Germain office on 12/03/21 for follow up. She expresses desire in her ability to resume driving. Please advise. PT Plan: Progression of end range ROM, CKC strengthening, stairs, balance, HEP Short Term Goals: Pt DEMON PROPER QUAD SET IN 1 WK Pt'S LEFT KNEE PAIN DECREASED TO 2-3/10 IN 2 WKS Pt DEMON AROM LEFT KNEE 0* TO 115* AND WFL LEFT PSOAS FLEXIBILITY IN 3 WKS Pt DEMO IMPROVED GAIT MECH W LEAST REST AD ON LEVEL GROUND AND STAIRS IN 2 WKS Longterm Goals: Pt INDEP W HEP PROGRESSION AND SELF-SX MGMT STRATEGIES IN 5 WKS Pt RESUME REG ADLs EVIDENT W IMPROVED LEFI SCORE BY 8-10 POINTS (AT EVAL ) IN 6 WKS Pt INCR LE STRENGTH BY 1 GRADE IN 6 WKS Electronically signed by: Gela Ma, PT, DPT
--- NOTE | 2022-02-17 11:49 | MHC.PT.DC ---
[facility] [place] Office [place] Office [place] Office [address] Harlan Cardenas [address] [phone] F: [phone] F: [phone] F: [phone] F: [phone] Physical Therapy Discharge Report Diagnosis: S/P LEFT TKA Date of Surgery: 10/20/21 Date of Evaluation: 11/05/21 Date of Discharge: 02/17/22 Treatments to Date: 23 Cancellations to Date: 0 No Shows to Date: 0 Discharge Status: Achieved Goals Improved Function Independent with HEP Patient Elected to Stop Discharge Summary: Pt HAS BEEN SEEN IN PT FOR INIT EVAL AND 23 SESSIONS. SHE HAS MET PT GOALS WITH IMPROVED FUNCTION NOTED. AT LAST SESSION (01/28/22) SHE REPORTED FEELING MORE CONFIDENT, BUT WOULD LIKE A FU PT VISIT TO ASSESS WORK ON HOME PROGRAM AND TRANSITION TO POOL PROGRAM. Pt NO SHOWED THAT SESSION WHICH WAS SCHEDULED FOR YESTERDAY (02/16). THIS PT CALLED Pt WHO REPORTS FORGOT ABOUT APPT AND IS DOING WELL WITH EXS AND PLANS TO START POOL PROGRAM SOON. AGREES WITH DC PT AT THIS TIME. 9 MO FU WITH ORTHO. ED TO CONTACT PT WITH ANY QUESTIONS OR CONCERNS. Electronically signed by: JENNIFER BENTON PT Please sign and return to therapist. Thank you for your referral.
== END 2022-02-17 11:50 | disposition home or self-care (01) ==
LOC: HO.PTWFD 14:00
PROVIDERS: Visit Provider Physician Assistant
DX: T84.84XD Pain due to internal orthopedic prosthetic devices, implants and grafts, subsequent encounter (principal); Z96.652 Presence of left artificial knee joint
CPT/HCPCS: 97110; 97140; 97162; 97530

== ENCOUNTER 2022-08-16 08:04 | Outpatient (REF) | payer BC, SELFPAY ==
--- NOTE | ~2022-08-16 | XR_ITS ---
EXAMINATION: KNEE X-RAY CLINICAL INFORMATION: Pain COMPARISON: Previous x-ray December 2021 TECHNIQUE: Standing AP view of both knees and lateral and sunrise view of the left knee FINDINGS: Left: There is a left knee replacement in satisfactory position. No fracture, dislocation or x-ray evidence of loosening. Small joint effusion. Stable small soft tissue calcification or ossification lateral to the patella on the sunrise view. Right knee replacement in satisfactory position. XR/XR knee standing BI IMPRESSION: Satisfactory appearance of left knee replacement. Small joint effusion. Satisfactory AP view of the right knee replacement.
--- NOTE | ~2022-08-16 | XR_ITS ---
EXAMINATION: KNEE X-RAY CLINICAL INFORMATION: Pain COMPARISON: Previous x-ray December 2021 TECHNIQUE: Standing AP view of both knees and lateral and sunrise view of the left knee FINDINGS: Left: There is a left knee replacement in satisfactory position. No fracture, dislocation or x-ray evidence of loosening. Small joint effusion. Stable small soft tissue calcification or ossification lateral to the patella on the sunrise view. Right knee replacement in satisfactory position. XR/XR knee LT 2V IMPRESSION: Satisfactory appearance of left knee replacement. Small joint effusion. Satisfactory AP view of the right knee replacement.
== END 2022-08-16 08:05 | disposition home or self-care (01) ==
LOC: HO.HOSX 08:04
PROVIDERS: Visit Provider Physician Assistant
DX: M25.562 Pain in left knee (principal); M25.561 Pain in right knee
CPT/HCPCS: 73560; 73565

== ENCOUNTER 2024-11-07 08:44 | Outpatient (AMB) | payer BC, SELFPAY ==
[2024-11-07 08:49] VITALS: BP 136/74; PULSE 72; O2SAT 96; BMI 38.6
--- NOTE | 2024-11-07 08:49 | MHC.OFFVIS ---
Vital Signs 11/07/24 08:49 Height 5 ft 6 in Weight 239 lb 6.752 oz BMI 38.6 BP 136/74 Blood Pressure Location Lt brachial Position Sitting Pulse 72 Pulse Source Pulse Oximeter Pulse Oximetry (%) 96 Oxygen Delivery Method Room Air Intake Visit Reasons: Discuss colo. Urgent req by Residential Program Worker Intake Note: NEW PATIENT Reason; [place] consult. Prior hx of colo/egd? 09/04/2018. Hx of TA per PCP note. Overdue. Via [facility] Concerns/Questions? Pt reports frequent stools and urgency since cholecystectomy. Pt would like to discuss this in addition to colo consult. Allergies fish derived [fish] Allergy (Severe, Verified 11/07/24 08:49) anaphylaxis (anchovies) lamotrigine Allergy (Intermediate, Verified 11/07/24 08:49) Difficulty Breathing Penicillins Allergy (Intermediate, Verified 11/07/24 08:49) itch Peppers, Jalapeno Allergy (Intermediate, Verified 11/07/24 08:49) vomiting/diarrhea Sulfa (Sulfonamide Antibiotics) Allergy (Intermediate, Verified 11/07/24 08:49) bleeding of eye w/sulfa eye drops HPI HPI Discuss colo. Urgent req by Residential Program Worker: Details: 64 year old? female with past medical history of GERD, osteoarthritis, sleep, hypothyroidism, anxiety, status post cholecystectomy in 2022 is here today for pre colonoscopy screening.? Patient was sent to us by her PCP.? Last colonoscopy was in 2018 and patient was recommended to repeat colonoscopy in 5 years. History of tubular adenoma. Patient reports postprandial loose stools since she had her cholecystectomy.?? Denies history of difficulty with sedation or anesthesia in the past.? History of sleep apnea.? Denies any history of cardiac, renal, pulmonary, or hepatic disease.?? No history of infectious? diseases like hepatitis A, B, C, HIV or tuberculosis.? Patient is not on any anticoagulation [facility] Medical History (Updated 11/07/24 @ 19:34 by OCTAVIA Martin-) Post-cholecystectomy syndrome Gallstones GERD (gastroesophageal reflux disease) Osteoarthritis Sleep apnea Hypothyroid Anxiety and depression Fracture of fifth metatarsal bone Surgical History Hx of cholecystectomy (~2022) Hx of elbow surgery Hx of tonsillectomy Hx of appendectomy Hx of arthroscopy of right knee History of salpingectomy History of decompression of ulnar nerve History of dilatation and curettage History of esophagogastroduodenoscopy (EGD) History of detached retina repair H/O colonoscopy History of total right knee replacement Social History Household Members: None Housing: Apartment Are you a primary director of critical care to a significant other at home: No Do you presently have visiting nurse or other home services: No Patient Tobacco Use Status: Never used Tobacco service: No Current occupational status: employed 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 Review of Systems Const Denies weight gain and Denies weight loss ENT Reports no additional complaints, Denies dysphagia and Denies odynophagia Card Reports no additional complaints Resp Reports no additional complaints GI Denies abdominal pain, Denies belching, Denies melena, Reports bloating, Denies change in bowel habits, Reports GI cramping, Denies dysphagia, Denies excessive flatus, Denies dyspepsia, Denies heartburn, Denies diarrhea, Reports loose stools, Denies nausea, Denies odynophagia and Denies vomiting Reports no additional complaints Musc Reports no additional complaints Neuro Reports no additional complaints Psych Reports no additional complaints Endo Reports no additional complaints Physical Exam Vital Signs: Last Vital Signs Pulse 72 11/07/24 08:49 BP 136/74 11/07/24 08:49 Pulse Ox 96 11/07/24 08:49 Oxygen Delivery Method Room Air 11/07/24 08:49 BMI result Body Mass Index 38.6 Const General: healthy appearing and no acute distress Nutritional Appearance: obese Orientation/consciousness: patient oriented x3 Resp Effort & Inspection: normal respiratory effort, able to speak in complete sentences, no tracheal deviation and symmetric chest movement Auscultation: clear to auscultation bilaterally Cardio Rate: regular rate GI Inspection: Yes normal to inspection, No distended and Yes obesity Palpation (GI): Soft to palpation, not firm, nontender and No hepatosplenomegaly present Auscultation: normal bowel sounds General: Yes no CVA tenderness Back/Spine/Pelvis Back: no CVA tenderness Skin General skin exam: elasticity normal, turgor normal and dry skin Neuro General: patient oriented x3 Psych Appearance: grossly normal Mental Status: mental status grossly normal Assessment & Plan Assessment & Plan (1) Screen for colon cancer: Code(s): Z12.11 - Encounter for screening for malignant neoplasm of colon (2) Postprandial diarrhea: Code(s): K52.9 - Noninfective gastroenteritis and colitis, unspecified (3) Postprandial abdominal bloating: Code(s): R14.0 - Abdominal distension (gaseous) (4) Post-cholecystectomy syndrome: Code(s): K91.5 - Postcholecystectomy syndrome Category: Medical (5) GERD (gastroesophageal reflux disease): Code(s): K21.9 - Gastro-esophageal reflux disease without esophagitis Qualifiers: Esophagitis presence: esophagitis presence not specified Qualified Code(s): K21.9 - Gastro-esophageal reflux disease without esophagitis Plan Patient denies any cardiac or respiratory symptoms.? Denies any issues with anesthesia in the past.? History of cholecystectomy in 2022. Patient reports that since then she has been having frequent postprandial diarrhea. Patient reports that sometimes does not matter what she eats. Will order thyroid study, CRP to rule out inflammatory processes, B12, folate and vitamin-D level. Patient was encouraged to start taking fiber with probiotics. If she continues to have symptoms like this we can start her on cholestyramine. Patient also reports that she was diagnosed with reflux on omeprazole. Patient had choking episodes when food got stuck in her esophagus and she had upper endoscopy in order to retrieve it. Patient reports that she no longer has these episodes. States that omeprazole works well for her. Patient reports that she has been on it for very long time. Patient will be sent for upper endoscopy. No history of infectious diseases in the past or present.? Not on any anticoagulation therapy.? No family history of colon cancer.? Patient denies melena, hematochezia, unintentional weight loss or ribbon like stools.? Discussed at length the pre-procedure,? prep, diet & medications as well as what to expect prior, during and after the procedure.?? Stressed the importance of good bowel prep.? Recommended the use of Vaseline or Calmoseptine OTC & baby wipes with bowel movements to promote comfort.? ?Patient verbalizes understanding and agrees to plan of care.? She was given the opportunity to ask questions and all questions answered.? We will see her after the procedure.? Orders: Orders TSH reflex Free T4 Today K59.00 - Constipation, unspecified C Reactive Protein Today K58.9 - Irritable bowel syndrome, unspecified Vitamin B12 and Folate Today R19.7 - Diarrhea, unspecified Vitamin D 25-OH (D2 and D3) Today E55.9 - Vitamin D deficiency, unspecified Medications: New bisacodyl (Dulcolax (bisacodyl)) take 4 tabs at noon the day before your colonoscopy 20 mg (4 x 5 mg) PO ONCE 1 day 4 tabs 0RF Z12.11 - Encounter for screening for malignant neoplasm of colon polyethylene glycol 3350 (Miralax) As directed by gastroenterology department at [facility] 238 grams PO ONCE 238 grams 0RF Z12.11 - Encounter for screening for malignant neoplasm of colon Coding Level of Care Code New Pt Level 4 (87708) Diagnoses Screen for colon cancer Z12.11 Postprandial diarrhea K52.9 Postprandial abdominal bloating R14.0 Post-cholecystectomy syndrome K91.5 Gastroesophageal reflux disease, unspecified whether esophagitis present K21.9 Esophagitis presence: esophagitis presence not specified Time Spent (min) 45 Comment 30 minutes spent with patient and additional 10 minutes spent reviewing her records
--- OUTSIDE RECORDS SUMMARY | 2024-11-07 08:49 | XMS_ITS | Continuity of Care Document ---
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 Role Phone Randa Wick MD Primary Care Physician [phone] Encounter [facility] [place](s): 10/08/24 - 10/15/24 [facility] [address] [place], [place] [address] Attending Physician: Randa Wick MD Encounter Type: Office Visit Allergies, Adverse Reactions, Alerts Substance Criticality Severity Reaction Reaction Severity Status penicillins itch Active sulfa drugs red eye Active lamoTRIgine CONY - Difficult y in breathing Active Immunizations Given and Recorded Vaccine Date Status Refusal Reason influenza virus vaccine, inactivated 1 10/08/24 Gi chrissy influenza virus vaccine, inactivated 09/22/21 Prateek rded influenza virus vaccine, inactivated 2 09/23/20 Gi chrissy influenza virus vaccine, inactivated 11/14/15 Give n influenza virus vaccine, inactivated 3 08/31/14 Re corded SARS-CoV-2 (COVID-19) mRNA BNT-162b2 vac 09/29/21 Recorded SARS-CoV-2 (COVID-19) mRNA BNT-162b2 vac 03/08/21 Recorded SARS-CoV-2 (COVID-19) mRNA BNT-162b2 vac 02/13/21 Recorded influ virus vac, H1N1, inactive(oldterm) 07/02/11 Given tetanus/diphtheria/pertussis, acel(Tdap) 4 01/22/11 Given 1Result Comment: [facility]# [id number] 2Result Comment: [facility] 39959-380-80 Pt tolerated vaccine without incident...[place] 3Result Comment: [10/02/2014] employer 4Admin Note: GIVEN W/O INCIDENT INFO SHEET GIVEN Medications Acetaminophen PRN Pain , Moderate, 0 Refills, Maintenance, 10/02/21 12:21:00 PM EST, Partial fill upon patient request if the prescription is for a schedule II opioid drug. Start Date: 10/02/21 Status: Ordered Repeat number: 1 buPROPion 300 mg/24 hours (XL) oral tablet, extended release 1 tablet = 300 mg, By Mouth, Every 24 hours, # 90 tablet, 1 Refills, Maintenance, 05/31/24 2:11:00 PMEDT, [id number], Partial fill upon patient request if the prescription is for a scheduleII opioid drug., 168, cm, 02/02/24 17:06:00 EDT, Height, 99.2, kg, 11/07/23 11:31:00 EST, Dry Weight Start Date: 05/31/24 Status: Ordered Quantity: 90.0 Unit: tablet Repeat number: 2 LORazepam 0.5 mg oral tablet 1 tablet = 0.5 mg, By Mouth, Daily, PRN as needed for anxiety, # 90 tablet, 0 Refills, Maintenance,10/11/24 12:06:00 PM EST, [id number], 168, cm, 10/08/24 11:09:00 EST, Height, 106, kg, 10/08/24 11:09:00 EST, Dry Weight Start Date: 10/11/24 Status: Ordered Quantity: 90.0 Unit: tablet Repeat number: 1 Multivitamin Tablet 1 tablet, By Mouth, Daily, # 30 tablet, 0 Refills, Maintenance, 01/31/14 9:23:13 AM EDT, Tablet Start Date: 01/31/14 Status: Ordered Quantity: 30.0 Unit: tablet Repeat number: 1 Omeprazole By Mouth, Daily, 0 Refills, Maintenance, 07/07/21 8:39:00 PM EDT, Partial fill upon patient request if the prescription is for a schedule II opioid drug. Start Date: 07/07/21 Status: Ordered Repeat number: 1 Synthroid 0.025 mg oral tablet See Instructions, TAKE 1 TABLET DAILY TUESDAY TO TUESDAY, TAKE 2 TABLETS ON TUESDAY AND 2 TABLETS ONSUNDAY, # 117 tablet, 0 Refills, Maintenance, 06/07/24 10:46:00 AM EDT, [id number], due for refill in july, 168, cm, 06/07/24 10:03:00 EDT, Height, 104.2, kg, 06/07/24 10:03:00 EDT, Dry Weight Start Date: 06/07/24 Status: Ordered Quantity: 117.0 Unit: tablet Repeat number: 1 Problem List Condition Confirmation Course Effective Dates Status H ealth Status Informant Anxiety depression Confirmed Active Eosinophilic esophagitis Confirmed Active S/P TKR (total knee replacement) Confirmed Active Hypothyroidism Confirmed Active QUINTON (obstructive sleep apnea) Confirmed Active Depression, major, recurrent, moderate Confirmed Active Severe obesity (BMI 35.0-39.9) with comorbidity Confirmed Active Tubular adenoma of colon Confirmed Active Procedures Procedure Date Related Diagnosis Body Site Status Laparoscopic cholecystectomy 10/04/23 Completed ERCP - endoscopic retrograde cholangiopancreatography 10/03/23 Complet ed Total knee arthroplasty LEFT 10/21/21 Completed Arthroplasty of the knee RIGHT 07/31/19 Completed Vital Signs Most recent to oldest [Reference Range]: 1 Height 168 cm (10/08/24 11:09 AM) Weight 106 kg (10/08/24 11:09 AM) Oxygen Saturation [94-100 %] 97 % (10/08/24 11:09 AM) Pulse Rate [55-90 bpm] 71 bpm (10/08/24 11:09 AM) Body Mass Index [18.5-24.99 kg/m2] 37.56 kg/m2 *>HHI* (10/08/24 11:09 AM) Blood Pressure [90-138/55-84 mm Hg] 150/ 85mm Hg *H* (10/08/24 11:09 AM) Mode of Delivery (Oxygen) Room air (10/08/24 11:09 AM) Blood pressure sites Arm, left (10/08/24 11:09 AM) Dry Weight 106 kg (10/08/24 11:09 AM) Weight Obtained Via Standing scale (10/08/24 11:09 AM) Dry Weight Obtained Via Standing scale (10/08/24 11:09 AM) Social History Social History Type Response Smoking Status Never (less than 100 in lifetime) entered on: 01/20/21 Sex Sex Representation Female (finding) Note * Prachi Damon: PERFORM Event Display: Patient Education/Instruction Authored Date: Ambulatory Adult Visit Summary [facility] [address] [place] [address] Name: ALYSIA GROVER : 1960?? Visit: 10/08/2024 11:05?? Ambulatory Visit Instructions ?? Your Care Team Primary Care Provider Randa Wick MD? This Visit Provider Randa Wick MD Your Diagnosis Annual physical exam Hypothyroidism Transaminitis Severe obesity (BMI 35.0-39.9) with comorbidity Tubular adenoma of colon Anxiety depression Arthritis Vitals Signs Pulse Rate: 71 bpm Height: 168 cm Systolic Blood Pressure:??150 mm Hg??High Weight: 106 kg Diastolic Blood Pressure:??85 mm Hg??High Body Mass Index:??37.56 kg/m2??Critical Oxygen Saturation: 97 % Body surface area: 2.22 What to do next Instructions From Your Provider ?? consider cortisone injection for the right 3rd trigger finger.? referral for 5 yr followup screening colonoscopy.?? conside using Colestipol table to reduce diarrhea? contact sleep medicine if you would like to use the asv machine Scheduled Follow-Up Appointments Tuesday 4:00 PM EST ?? With: Swapnil Lindsay PhD Where: [facility] [address] [place] [id number]- Status: Pending Tuesday 1:00 PM EST ?? With: Swapnil Lindsay PhD Where: [facility] [address] [place] [id number]- Status: Pending 2024 1:00 PM EST ?? With: Pina Ness DO Where: [facility] [address] [place] [id number]- Status: Pending Follow-Up Appointments Follow Up with??Randa Wick MD When:??02/06/2025 09:00 AM EDT Where: [address] [facility] [place] [address]- Follow Up with??Samir PIERRE, Cammie Fatima Where: [address] [place] [address]- Future Orders Hepatic Function Panel - Routine, Once, 06/07/24 10:44:00 EDT, Future Order, [facility], Blood?? Basic Metabolic Panel - Routine, Once, 06/07/24 10:44:00 EDT, Future Order, [facility], Blood?? Thyroid Panel - Routine, Once, 06/07/24 10:44:00 EDT, Future Order, [facility], Blood?? Hemoglobin A1C (Monitoring) - Routine, Once, 06/07/24 10:45:00 EDT, Future Order, [facility], Blood?? Lipid Panel - Routine, Once, 06/07/24 10:45:00 EDT, Future Order, [facility], Blood?? Basic Metabolic Panel - Routine, Once, 10/08/24 12:15:00 EST, Future Order, [facility], Blood?? Lipid Panel - Routine, Once, 10/08/24 12:15:00 EST, Future Order, [facility], Blood?? Thyroid Panel - Routine, Once, 10/08/24 12:15:00 EST, Future Order, [facility], Blood?? Hepatic Function Panel - Routine, Once, 10/08/24 12:15:00 EST, Future Order, [facility], Blood?? Vitamin D 25 Hydroxy Level - Routine, Once, 10/08/24 12:15:00 EST, Future Order, [facility], Blood?? Uric Acid - Routine, Once, 10/08/24 12:30:00 EST, Future Order, [facility], Blood?? Medications The list below reflects the information in our records and provided by you today along with any changes made during this visit. Please continue your medications until treatment is completed or stopped by your provider. If this is different from the information you have or there are other questions,please contact the prescribing provider. What How Much When Instructions Unchanged Acetaminophen As needed for Pain , Moderate Unchanged BuPROpion (buPROPion 300 mg/ 24 hours (XL) oral tablet, extended release) 1 tab(s) Oral Every 24 hours Unchanged Levothyroxine (Synthroid 0.025 mg oral tablet) See instructions TAKE 1 TABLET DAILY TUESDAY TO TUESDAY, TAKE 2 TABLETS ??ON TUESDAY AND 2 TABLETS ??ON TUESDAY ?? Unchanged Lorazepam (LORazepam 0.5 mg oral tablet) 1 tab(s) Oral Daily as needed for as needed for anxiety Unchanged Multivitamin (Multivitamin Tablet) 1 tab(s) Oral Daily Unchanged Omeprazole Oral Daily Test Performed Below is a partial list of the tests performed during your Visit. You may have had other tests and procedures not included in this list. Please discuss all test results with your provider. Basic Metabolic Panel?-- Results Pending -- Hepatic Function Panel?-- Results Pending -- Lipid Panel?-- Results Pending -- Thyroid Panel?-- Results Pending -- Uric Acid?-- Results Pending -- Vitamin D 25 Hydroxy Level?-- Results Pending -- Medications and Immunizations Administered Immunizations Given During Visit Given Vaccine Date influenza virus vaccine, inactivated 10/08/2024 Comments : [facility]# [id number] Medications Given During Visit Medication ?? Dose ?? Route ?? Last Dose Times ?? influenza virus vaccine, inactivated?0.50 mL?? Intramuscular?? 08-OCT-2024 11:29:00.00?? Allergies (NKA means No Known Allergies) lamoTRIgine??(CONY - Difficulty in breathing) penicillins??(itch) sulfa drugs??(red eye) Education Materials Below is the list of Educational Leaflet Providered with your Visit summary. [employer] Ignite Patient Education - Colestipol?? Common Emergency Awareness Tips IS IT A STROKE? Act FAST and Check for these signs: FACE Does the face look uneven? ARM Does one arm drift down? SPEECH Does their speech sound strange? TIME Call at any sign of stroke ?? Heart Attack Signs Chest discomfort: Most heart attacks involve discomfort in the center of the chest and lasts more than a few minutes, or goes away and comes back. It can feel like uncomfortable pressure, squeezing, fullness or pain. Discomfort in upper body: Symptoms can include pain or discomfort in one or both arms, back, neck, jaw or stomach. Shortness of breath: With or without discomfort. Other signs: Breaking out in a cold sweat, nausea, or lightheaded. Remember, MINUTES DO MATTER. If you experience any of these heart attack warning signs, call to get immediate medical attention! ?? Smoking can increase your chances of developing chronic health problems and can cause harmful effects to other family members in your house. If you smoke, you are strongly encouraged to quit. Please call [employer] at [phone] or [phone] Computer ([phone]) or log in to [email or web address] for referrals to smoking cessation programs. ?? The National Suicide Prevention Hotline is available 23/05 if you or someone you know needs to find a reason to keep living. By calling 4-771-589-Individual Digital (8676) you'll be connected to a skilled, trained counselor at a crisis center in your area. [facility] [employer] Portal You can view and manage your care through the patient portal or by using a health care hernando of your choosing. [employer] is a website that allows you to securely view your medical information including your hospital discharge summary, office visit summaries, medications and follow-up visits. You can also request appointments, renew medications, and request access to your medical information using a health care hernando of your choosing, or just ask a question. You can enroll at [email or web address] or register during your next office visit. [facility], in keeping with [facility] guidance, no longer requires face masks for staff, patientsor visitors in most situations. Similiar to time spent indoors at other locations, there is the chance that you were exposed to repiratory viruses during your time with us (such as flu or COVID-19). If you develop symptoms concerning for a viral respiratory infection, please seek testing (and treatment if indicated) from your medical provider or home test kit. ?? Disclaimer: The information provided is of a general nature and is intended to be used in conjunction with the recommendations and advice of your health care practitioner. Every effort has been made to ensure that the information provided is accurate and complete at the time it is provided to you however, as your needs change, or, as new information becomes available, different or additional instructions may be required. ?? If you have questions, please consult with your primary care provider or pharmacist, as appropriate. This information is not intended to serve as substitution for assessment and evaluation by a qualified health care provider. If you do not have a primary care provider, you may find a [facility] provider by calling [facility] [employer] [facility] at [phone]. * Shamika PIERRE, Randa Matthews: PERFORM Event Display: Patient Education Leaflets Authored Date: Colestipol ?? [id number] Colestipol Brand Name(s): Colestid??, Colestid?? Flavored Granules, Colestid?? Granules; also available generically ?? WHY is this medicine prescribed? Colestipol is used along with diet changes to decrease the amount of fatty substances such as low-density lipoprotein (LDL) cholesterol ('bad cholesterol') in certain people with high cholesterol. Colestipol is in a class of medications called bile acid sequestrants. It works by binding bile acids in your intestines to form a product that is removed from the body. HOW should this medicine be used? Colestipol comes as tablets and granules to take by mouth. The tablets are usually taken once or twice daily. The granules are usually taken one to six times daily. Follow the directions on your prescription label carefully, and ask your doctor or pharmacist to explain any part you do not understand. Take colestipol exactly as directed. Do not take more or less of it or take it more often than prescribed by your doctor. Unless otherwise instructed, take all other medications at least 1 hour before or 4 hours after youtake colestipol because it can interfere with their absorption. Swallow the tablets whole with a glass of water or another liquid; do not chew, split, or crush them. Your doctor may gradually increase your dose at 1 to 2 month intervals, depending on your response. Continue to take colestipol even if you feel well. Do not stop taking colestipol without talking toyour doctor. Do not take the granules dry. Add them to at least 3 ounces (90 milliliters) of a liquid (e.g., fruit juice, water, milk, or soft drink) and stir until completely mixed. If you use a carbonated beverage, mix it slowly in a large glass to minimize foaming. After taking the dose, rinse the glass witha small amount of additional liquid and drink it to be sure that you receive the entire dose. Colestipol also may be mixed with hot or regular breakfast cereals, thin soups (e.g., tomato and chicken noodle), or pulpy fruit (e.g., crushed pineapple, pears, peaches, and fruit cocktail). Are there OTHER USES for this medicine? This medication may be prescribed for other uses; ask your doctor or pharmacist for more information. What SPECIAL PRECAUTIONS should I follow? Before taking colestipol, ??? tell your doctor and pharmacist if you are allergic to colestipol, any other medications, or any of the ingredients in colestipol preparations. Ask your pharmacist for a list of the ingredients. ??? tell your doctor and pharmacist what other prescription and nonprescription medications, vitamins, nutritional supplements, and herbal products you are taking or plan to take while taking colestipol. . Your doctor may need to change the doses of your medications or monitor you carefully for sideeffects. ??? the following nonprescription products may interact with colestipol: oral phospate supplements. Be sure to let your doctor and pharmacist know that you are taking these medications before you start taking colestipol. Do not start any of these medications while taking colestipole without discussing with your healthcare provider. ??? if you are taking gemfibrozil (Lopid), take it 2 hours before or 2 hours after colestipol. ??? tell your doctor if you have or have ever had unusual bleeding, an underactive thyroid gland, heart or intestinal disease, or if you have hemorrhoids. ??? tell your doctor if you are , plan to become , or are . If you become while taking colestipol, call your doctor. What SPECIAL DIETARY instructions should I follow? Eat a low-fat, low-cholesterol diet. Be sure to follow all exercise and dietary recommendations made by your doctor or dietitian. You can also visit the National Cholesterol Education Program (NCEP) website for additional dietary information at https://www.nhlbi.nih.gov/health/public/heart/chol/chol_tlc.pdf. What should I do IF I FORGET to take a dose? Take the missed dose as soon as you remember it. However, if it is almost time for the next dose, skip the missed dose and continue your regular dosing schedule. Do not take a double dose to make up for a missed dose. What SIDE EFFECTS can this medicine cause? Colestipol may cause side effects. Tell your doctor if any of these symptoms are severe or do not go away: ??? constipation ??? belching ??? nausea ??? vomiting ??? gas Some side effects can be serious. If you experience the following symptom, call your doctor immediately: ??? unusual bleeding (such as bleeding from the gums or rectum) If you experience a serious side effect, you or your doctor may send a report to the Food and Drug Administration's (FDA) MedWatch Adverse Event Reporting program online (https://www.fda.gov/Safety/MedWatch) or by phone ( ). What should I know about STORAGE and DISPOSAL of this medication? Keep this medication in the container it came in, tightly closed, and out of reach of children. Store it at room temperature and away from excess heat and moisture (not in the bathroom). It is important to keep all medication out of sight and reach of children as many containers (such as weekly pill minders and those for eye drops, creams, patches, and inhalers) are not child-resistant and young children can open them easily. To protect young children from poisoning, always lock safety caps and immediately place the medication in a safe location ??? one that is up and away and out of their sight and reach. https://www.upandaway.org Unneeded medications should be disposed of in special ways to ensure that pets, children, and otherpeople cannot consume them. However, you should not flush this medication down the toilet. Instead,the best way to dispose of your medication is through a medicine take-back program. Talk to your pharmacist or contact your local garbage/recycling department to learn about take-back programs in your community. See the FDA's Safe Disposal of Medicines website (https://goo.gl/c4Rm4p) for more information if you do not have access to a take-back program. What should I do in case of OVERDOSE? In case of overdose, call the poison control helpline at . Information is also available online at https://www.poisonhelp.org/help. If the victim has collapsed, had a seizure, has trouble breathing, or can't be awakened, immediately call emergency services at 911. What OTHER INFORMATION should I know? Keep all appointments with your doctor and the laboratory. Your doctor will order certain lab teststo check your response to colestipol. Do not let anyone else take your medication. Ask your pharmacist any questions you have about refilling your prescription. It is important for you to keep a written list of all of the prescription and nonprescription (zlbg-jwh-czoecng) medicines you are taking, as well as any products such as vitamins, minerals, or otherdietary supplements. You should bring this list with you each time you visit a doctor or if you areadmitted to a hospital. It is also important information to carry with you in case of emergencies. This report on medications is for your information only, and is not considered individual patient advice. Because of the changing nature of drug information, please consult your physician or pharmacist about specific clinical use. The [employer] represents that the information provided hereunder was formulated with a reasonable standard of care, and in conformity with professional standards in the field. The [employer] makes no representations or warranties, express or implied, including, but not limited to, any implied warranty of merchantability and/or fitness for a particular purpose, with respect to such information and specifically disclaims all such warranties. Users are advised that decisions regarding drug therapy are complex medical decisions requiring the independent, informed decision of an appropriate health rn critical care, and the information is provided for informational purposes only. The entire monograph for a drug should be reviewed for a thorough understanding of the drug's actions, uses and side effects. The [employer] does not endorse or recommend the use of any drug.The information is not a substitute for medical care. AHFS?? Patient Medication Information???. ?? Copyright, 2023. The [employer]??, [address], [address], [place], [place]. All Rights Reserved. Duplication for commercial use must be authorized by [facility]. Selected Revisions: July 15, 2018. AHFS?? Patient Medication Information???. ?? Copyright, 2023 ?? Patient Care team information Care Team Personnel Name: Alesia Kaiser RN Position: S RN Member Role: Primary Care Nurse Name: Jeannette Brandon RN Position: S RN Member Role: Primary Care Nurse Name: Randa Wick MD Position: [facility] Physician - Primary Care Member Role: PCP Address: [address] [place] [address] [facility] Pediatric [address] Telecom: Name: Lucy Dickerson RN Position: [facility] Onco RN Member Role: Primary Care Nurse Name: Ellyn Gray LPN Position: [facility] RN Member Role: Primary Care Nurse Care Team Related Persons Name: CLEMENTE ERZAO Insurance Providers Guarantor name: ALYSIA HAZELWOOD [employer] [facility] Information #: 1 Payer: [employer] Member Number: [id number] Policy Number: NA Group Number: [id number] Health Plan Information #: 2 Payer: [employer] Member Number: [id number] Policy Number: NA Group Number: [id number]
== END 2024-11-07 10:32 | disposition home or self-care (01) ==
PROVIDERS: PCP Internal Medicine; Visit Provider Nurse Practitioner Family
DX: K91.5 Postcholecystectomy syndrome (principal); K52.9 Noninfective gastroenteritis and colitis, unspecified; Z12.11 Encounter for screening for malignant neoplasm of colon; K21.9 Gastro-esophageal reflux disease without esophagitis
CPT/HCPCS: 99204

== ENCOUNTER 2024-11-07 08:44 | Outpatient (REF) | payer BC, SELFPAY ==
[2024-11-07 11:13] LABS: C Reactive Protein 0.37 mg/dL (< or = 0.50)
[2024-11-07 11:29] LABS: TSH reflex Free T4 5.02 uIU/mL (0.32-4.0)
[2024-11-07 11:47] LABS: Folate > 20.0 ng/mL (> or = 4.0); Vitamin B12 370 pg/mL (200-900)
[2024-11-11 14:59] LABS: Vitamin D 25-OH, D2 <4 ng/mL; Vitamin D 25-OH, D3 31 ng/mL; Vitamin D 25-OH, Total 31 ng/mL (30-100)
== END 2024-11-07 08:45 | disposition home or self-care (01) ==
LOC: HO.LAB 08:44
PROVIDERS: PCP Internal Medicine; Visit Provider Nurse Practitioner Family
DX: R19.7 Diarrhea, unspecified (principal); K59.00 Constipation, unspecified; K58.9 Irritable bowel syndrome, unspecified; E55.9 Vitamin D deficiency, unspecified
CPT/HCPCS: 36415; 82306; 82607; 82746; 84439; 84443; 86140

== ENCOUNTER 2025-05-13 11:14 | Outpatient (AMB) | payer BC, SELFPAY ==
--- NOTE | 2025-05-13 11:16 | A.OFFVIS_ITS ---
Intake Visit Reasons: New Prob - Right Knee Pain Intake Note: Sarah is a 64 year old female who presents today for a new problem visit with complaints of Right Knee Pain. Patient reports that she tripped and fell on the right knee on Tuesday05/10/25. Hx of Right TKA done 2018 at [facility]. When falling she landed directly on the right knee. She is able to weight bear on the right knee but it is feeling tight. Motrin 600 & Tylenol Extra Strength - which is helping mildly with her pain. Utilizing elevation as much as posisible, including at night Allergies fish derived (fish) Allergy (Severe, Verified 11/07/24 08:49) anaphylaxis (anchovies) lamotrigine Allergy (Intermediate, Verified 11/07/24 08:49) Difficulty Breathing Penicillins Allergy (Intermediate, Verified 11/07/24 08:49) itch Peppers, Jalapeno Allergy (Intermediate, Verified 11/07/24 08:49) vomiting/diarrhea Sulfa (Sulfonamide Antibiotics) Allergy (Intermediate, Verified 11/07/24 08:49) bleeding of eye w/sulfa eye drops HPI HPI New Prob - Right Knee Pain: Details: Sarah is a 64 year old female who presents today for a new problem visit with complaints of Right Knee Pain. Patient reports that she tripped and fell on the right knee on Tuesday05/10/25. Hx of Right TKA done 2019 at [facility]. When falling she landed directly on the right knee. She is able to weight bear on the right knee but it is feeling tight. Motrin 600 & Tylenol Extra Strength - which is helping mildly with her pain. Utilizing elevation as much as posisible, including at night [facility] Medical History (Updated 11/07/24 @ 19:34 by Sarai Lanier TIE PRESSER-) Post-cholecystectomy syndrome Gallstones GERD (gastroesophageal reflux disease) Osteoarthritis Sleep apnea Hypothyroid Anxiety and depression Fracture of fifth metatarsal bone Surgical History Hx of cholecystectomy (~2022) Hx of elbow surgery Hx of tonsillectomy Hx of appendectomy Hx of arthroscopy of right knee History of salpingectomy History of decompression of ulnar nerve History of dilatation and curettage History of esophagogastroduodenoscopy (EGD) History of detached retina repair H/O colonoscopy History of total right knee replacement Social History Household Members: None Housing: Apartment Are you a primary home care scheduler to a significant other at home: No Do you presently have visiting nurse or other home services: No Patient Tobacco Use Status: Never used Tobacco service: No Current occupational status: employed 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 There is ecchymosis over the anterior knee and posterior popliteal fossa extending posterolaterally in his calf. Minimal calf tenderness. Mostly she is tender over the anterior tibia and the tibial tubercle. She has no pain with resisted knee extension and full range of motion of the right knee. Stable to varus and valgus stress. Results Reviewed Results Reviewed: I personally reviewed relevant radiographs. Right total knee arthroplasty in expected post operative position with no hardware complications or evidence of loosening Assessment & Plan Assessment & Plan (1) S/P total knee arthroplasty: Code(s): Z96.659 - Presence of unspecified artificial knee joint Category: Surgical Plan: 64-year-old woman status post fall on the anterior aspect of the right knee. Radiographs and exam are unremarkable and notable only for tenderness to palpation about the anterior aspect of the knee with no pain on resisted extension or flexion. There is no evidence of acute bony oral injury or injury to the prosthesis. I recommend continue gentle progression of activity. No intervention warranted at this time. Orders: Orders XR knee RT 3V Today M25.561 - Pain in right knee XR knee LT 3V Today M25.562 - Pain in left knee Coding Level of Care Code Est Pt Level 3 (43806) Diagnoses S/P total knee arthroplasty Z96.659
--- OUTSIDE RECORDS SUMMARY | 2025-05-13 12:21 | XMS_ITS | Clinical Summary ---
Author Organization [facility] Address [address] [place] [address] Care Team Providers Care Chinchilla Machine Operator Name Role Phone Unavailable Primary Care Provider Unavailabl e Social History Tobacco Use Types Packs/Day Years Used Date Smoking Tobacco: Never Assessed Comments Unknown Sex and Gender Information Value Date Recorded Sex Assigned at Not on file Legal Sex Female 12:28 PM EDT Gender Identity Not on file Sexual Orientation Not on file Last Filed Vital Signs Vital Sign Reading Time Taken Comments Blood Pressure 150/80 02/01/2013 6:22 PM EDT Pulse 60 02/01/2013 6:22 PM EDT Temperature 35.9 C (96.6 F) 02/01/2013 6:22 PM EDT Respiratory Rate 16 11/02/2012 4:21 PM EST Oxygen Saturation - - Inhaled Oxygen Concentration - - Weight - - Height - - Body Mass Index - - Plan of Treatment Health Maintenance Due Date Last Done Comments Hepatitis C Virus Screening 1960 HIV Screening 1973 DTaP/Tdap/Td Vaccines (1 - Tdap) 1979 Pneumococcal Vaccines 50+ (1 of 1 - PCV) 2010 Zoster (Shingles) Vaccine (1 of 2) 2010 COVID-19 Vaccine ( - 2023-2 5 season) 2024 RSV Vaccine 60 years and old er and Patients (1 - 1-dose 75+ series) 2035 Hepatitis B Vaccines Aged Out No long er eligible based on patient's age to complete this topic
--- OUTSIDE RECORDS SUMMARY | 2025-05-13 12:21 | XMS_ITS | Clinical Summary ---
Author Organization [facility] Address [address] [place] [id number] Care Team Providers Care Equity Trader Name Role Phone Randa Wick MD Primary Care Provider [phone] Allergies Active Allergy Reactions Criticality Noted Date Comments Animal Dander Hives Medium 07/23/2019 Dust Itching Medium 07/23/2019 Trichophyton Itching Medium 07/23/2019 Penicillins Other (See Comments) Medium 07/23/2019 Skin felt like crawling ants - tingling Sulfa Antibiotics Other (See Comments) Medium 07/23/20 19 Made eyes bleed Medications Medication Sig Dispensed Refills Start Date End Date Status levothyroxine (SYNTHROID, LEVOXYL) tablet 25 mcg TAKE 1 TABLET BY MOUTH ONCE DAILY TUESDAY TO TUESDAY AND TWO TABLETS ON TUESDAY AND TUESDAY 0 07/03/2019 Active omeprazole (PriLOSEC) 20 MG capsule Take 20 mg by mouth daily. 0 Active LORazepam (ATIVAN) 0.5 MG tablet Take 0.5 mg by mouth every 6 (six) hours as needed. 0 Active oxyCODONE (ROXICODONE) 5 MG immediate release tablet Take 1 tablet (5 mg total) by mouth every 4 (four) hours as needed. 42 tablet 0 08/09/2019 Active acetaminophen (TYLENOL EXTRA STRENGTH) 500 MG tablet Take 2 tablets (1,000 mg total) by mouth every 8 (eight) hours. 30 tablet 0 08/09/2019 Active senna-docusate (PERICOLACE) 8.6-50 MG Take 1 tablet by mouth 2 (two) times a day. 60 tablet 0 08/09/2019 Active buPROPion (WELLBUTRIN XL) 300 MG 24 hr tablet Take 1 tablet (300 mg total) by mouth daily. 30 tablet 0 08/09/2019 Active methocarbamol (ROBAXIN) 750 MG tablet Take 1 tablet (750 mg total) by mouth every 6 (six) hours as needed (spasms). 40 tablet 0 09/04/2019 Active clindamycin (CLEOCIN) 300 MG capsule TAKE 2 CAPS 1 HOUR PRIOR TO DENTAL PROCEDURE 20 capsule 1 08/27/2020 Active Active Problems Problem Noted Date Diagnosed Date Status post total right knee replacement 019 Arthritis of right knee 08/08/2019 Flexion contracture of right knee 08/08/2019 Bilateral primary osteoarthritis of knee 019 Genu varum of right lower extremity 07/23/2019 Obesity (BMI 30-39.9) 07/23/2019 Acquired hypothyroidism 07/23/2019 Depression 07/23/2019 Immunizations Name Administration Dates Next Due Influenza Quad (Fluarix/Fluz one/FluLaval) 0.5mL (SD-IIV4) 08/09/2019 Family History Medical History Relation Name Comments Arthritis Father Diabetes Father Heart attack Father Heart disease Father Hypertension Father Stroke Father Arthritis Mother Hypertension Mother Arthritis Sister 1 1 Diabetes Sister 1 1 Hypertension Sister 1 1 No Sig Med Hx Sister 2 2 Relation Name Status Comments Father Alive Mother Alive Sister 1 1 Alive Sister 2 2 Alive Social History Tobacco Use Types Packs/Day Years Used Date Smoking Tobacco: Never Smokeless Tobacco: Never Tobacco Cessation:Counseling Given: No Alcohol Use Standard Drinks/Week Comments Yes 0 (1 standard drink = 0.6 oz pur e alcohol) social Sex and Gender Information Value Date Recorded Sex Assigned at Female 07/18/2019 3:05 PM EDT Gender Identity Female 07/18/2019 3:05 PM EDT Sexual Orientation Not on file Last Filed Vital Signs Vital Sign Reading Time Taken Comments Blood Pressure 149/93 12/20/2019 11:38 AM EST Pulse 81 12/20/2019 11:38 AM EST Temperature 37.2 C (98.9 F) 08/16/2019 1:21 PM EDT Respiratory Rate 17 08/09/2019 9:01 AM EDT Oxygen Saturation 98% 08/09/2019 9:01 AM EDT Inhaled Oxygen Concentration - - Weight 98.3 kg (216 lb 12.8 oz) 020 11:38 AM EST Height 168.9 cm (5' 6.5 ) 08/08/2019 6:23 AM EDT Body Mass Index 34.47 08/08/2019 6:23 AM EDT Plan of Treatment Health Maintenance Due Date Last Done Comments Hepatitis C Screening 1960 COVID-19 Vaccine (#1) 03/11/1961 Depression Screening 1972 BMI Counseling 1978 Preventative Health Evaluation 1978 DTap / Tdap / Td (1 - Tdap) 1979 Cervical Cancer Screening (P ap Smear) 1981 Colon Cancer Screening (Colonoscopy) 2005 Breast Cancer Screening (Mammogram) 2010 Shingrix-Zoster Vaccine (1 of 2) 2010 Influenza Vaccine (#1) 2025 08/09/2019 Pneumococcal Vaccine (1 of 1 - PCV) 2025 RSV Adult > 60+ Yrs or Pregn ant (1 - 1-dose 75+ series) 2035 Hepatitis B Vaccines Aged Out No long er eligible based on patient's age to complete this topic Pneumococcal Vaccine Aged Out No long er eligible based on patient's age to complete this topic RSV Ped < 20 months Aged Out No longe r eligible based on patient's age to complete this topic Medical Devices Implanted Type 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 Helper Device Identifier Shelf Expiration Date Model / Serial / Lot Cement Bone Simplex High Viscosity 20ml 40gm 10\Pack - [id number] - [id number] Implanted:Qty: 1 on 08/08/2019 by Carlos Alberto Patterson MD at [facility] Right: Knee [employer] 12/28/2020 6194-1-010 / / [id number] Cement Bone Simplex High Viscosity 20ml 40gm 10\Pack - [id number] - [id number] Implanted:Qty: 1 on 08/08/2019 by Carlos Alberto Patterson MD at [facility] and [facility] Right: Knee [employer] 12/28/2020 6194-1-010 / / [id number] Component Triathlon 5 Cemented Posterior Stabilized Femoral - [id number] - [id number] Implanted:Qty: 1 on 08/08/2019 by Carlos Alberto Patterson MD at [facility] and [facility] Right: Knee [employer] 04/01/2024 [id number] / / [id number] Baseplate Triathlon 4 Primary Cemented Tibial Knee - [id number] - [id number] Implanted:Qty: 1 on 08/08/2019 by Carlos Alberto Patterson MD at [facility] and [facility] Right: Knee [employer] 06/05/2024 5520-[id number] / / [id number] Triathlon Ps Insert - Size 4 10mm X3 - [id number] - [id number] Implanted:Qty: 1 on 08/08/2019 by Carlos Alberto Patterson MD at [facility] and [facility] Right: Knee [employer] 07/24/2023 [id number] / / [id number] Component Patella 35mm Elle 10mm Thick Asymmetric Triathlon - [id number] - [id number] Implanted:Qty: 1 on 08/08/2019 by Carlos Alberto Patterson MD at [facility] and [facility] Right: Knee [employer] 03/07/2024 [id number] / / [id number] Advance Directives For more information, please contact: [phone] Latest Code Status on File Code Status Date Activated Date Inactivated Comments Full Code 08/08/2019 10:25 AM 08/09/2019 8:08 PM Thi s code status was ascertained in the following way: continuation of previously documented code status . Code Status History Code Status Date Activated Date Inactivated Comments Full Code 08/08/2019 5:41 AM 08/08/2019 10:25 AM This code status was ascertained in the following way: per living will or healthcare instructions . Care Teams Equity Trader Relationship Specialty Start Date End Date Randa Wick MD [address] [place] [address] PCP - General Internal Medicine 07/23/19
--- OUTSIDE RECORDS SUMMARY | 2025-05-13 12:21 | XMS_ITS | Clinical Summary ---
Author Organization [facility] Address [address] [place] [address] Care Team Providers Care Operator Cavity Pump Name Role Phone Randa Wick MD Primary Care Provider [phone] Surgical History Surgery Date Site/Laterality Comments TONSILLECTOMY PROCEDURE:TONSILLECTOMY;COMMENT:1 964 APPENDECTOMY 1973 PROCEDURE:APPENDECTOMY KNEE SURGERY 1988 Right PROCEDURE:KNEE SURGERY ULNAR NERVE REPAIR 2002 Right PROCEDURE:ULNAR NERVE REPAIR ECTOPIC SURGERY 2000 PROCEDURE:ECTOPIC SURGERY;COMMENT:(pt very private about- do not share with family members) CYST REMOVAL PROCEDURE:CYST REMOVAL;COMMENT:Uterine ESOPHAGUS SURGERY 2015 PROCEDURE:ESOPHAGUS SURGERY;COMMENT:removal of blockage COLON SURGERY PROCEDURE:COLON SURGERY TOTAL KNEE ARTHROPLASTY 08/08/2019 Right PROCEDURE:TOTAL KNEE ARTHROPLASTY;COMMENT:Procedure: REPLACEMENT TOTAL KNEE; Surgeon: Carlos Alberto Patterson MD; Location: [facility] ([facility]); Service: Orthopedics; Laterality: Right; Medical History Medical History Date Comments Arthritis DX:Arthritis Visual impairment DX:Visual impa irment;COMMENT:wears glasses Depression DX:Depression Anxiety DX:Anxiety Family History Medical History Relation Name Comments Arthritis Father Diabetes Father Heart attack Father Heart disease Father Hypertension Father Stroke Father Arthritis Mother Hypertension Mother Arthritis Sister 1 1 Diabetes Sister 1 1 Hypertension Sister 1 1 No Known Problems Sister 2 2 Relation Name Status Comments Father Alive Mother Alive Sister 1 1 Alive Sister 2 2 Alive Social History Tobacco Use Types Packs/Day Years Used Date Smoking Tobacco: Never Smokeless Tobacco: Never Alcohol Use Standard Drinks/Week Comments Yes 0 (1 standard drink = 0.6 oz pur e alcohol) Comments Unknown Sex and Gender Information Value Date Recorded Sex Assigned at Not on file Legal Sex Female 7:10 PM EST Gender Identity Not on file Sexual Orientation Not on file Obstetrics History Plan of Treatment Health Maintenance Due Date Last Done Comments Breast Cancer Screening 1960 DTaP,Tdap,and Td Vaccines (1 - Tdap) 1979 Cervical Cancer Screening: P ap Smear 1981 Pneumococcal Vaccine: 50+ Ye ars (1 of 1 - PCV) 2010 Zoster Vaccines (1 of 2) 2010 COVID-19 Vaccine (1 - 2023-2 5 season) 2024 Influenza Vaccine (#1) 2025 08/09/2019 RSV Immunization Adult Patie nts (1 - 1-dose 75+ series) 2035 HIB Vaccines Aged Out No longer eligi ble based on patient's age to complete this topic HPV Vaccines Aged Out No longer eligi ble based on patient's age to complete this topic Hepatitis A Vaccines Aged Out No long er eligible based on patient's age to complete this topic Hepatitis B Vaccines Aged Out No long er eligible based on patient's age to complete this topic IPV Vaccines Aged Out No longer eligi ble based on patient's age to complete this topic MMR Vaccines Aged Out No longer eligi ble based on patient's age to complete this topic Meningococcal ACWY Vaccine Aged Out N o longer eligible based on patient's age to complete this topic Meningococcal B Vaccine Aged Out No l onger eligible based on patient's age to complete this topic RSV Immunization Patients Un mic 20 months Aged Out No longer eligible b ased on patient's age to complete this topic Varicella Vaccines Aged Out No longer eligible based on patient's age to complete this topic Medical Devices Implanted Type Area Pipe Tester Device Identifier Shelf Expiration Date Model / Serial / Lot Cement Bone Simplex High Viscosity 20ml 40gm 10\Pack - [id number] Implanted:Qty: 1 on 08/08/2019 by Carlos Alberto Patterson MD Right: Knee [employer] 12/28/2020 6194-1-010 / / [id number] Cement Bone Simplex High Viscosity 20ml 40gm 10\Pack - [id number] Implanted:Qty: 1 on 08/08/2019 by Carlos Alberto Patterson MD Right: Knee [employer] 12/28/2020 6194-1-010 / / [id number] Component Triathlon 5 Cemented Posterior Stabilized Femoral - [id number] Implanted:Qty: 1 on 08/08/2019 by Carlos Alberto Patterson MD Right: Knee [employer] 04/01/2024 5515-F-[id number] / / [id number] Baseplate Triathlon 4 Primary Cemented Tibial Knee - [id number] Implanted:Qty: 1 on 08/08/2019 by Carlos Alberto Patterson MD Right: Knee [employer] 06/05/2024 5520-B-400 / / [id number] Triathlon Ps Insert - Size 4 10mm X3 - [id number] Implanted:Qty: 1 on 08/08/2019 by Carlos Alberto Patterson MD Right: Knee [employer] 07/24/2023 5532-G-[id number] -[id number] / / [id number] Component Patella 35mm Elle 10mm Thick Asymmetric Triathlon - [id number] Implanted:Qty: 1 on 08/08/2019 by Carlos Alberto Patterson MD Right: Knee [employer] 03/07/2024 5551-[id number] / / [id number] Care Teams Operator Cavity Pump Relationship Specialty Start Date End Date Randa Wick MD [address] [place] [id number] PCP - General Internal Medicine 07/23/19
== END 2025-05-13 11:55 | disposition home or self-care (01) ==
LOC: HO.HOS 11:15
PROVIDERS: PCP Internal Medicine; Visit Provider Orthopaedic Surgery
DX: Z47.89 Encounter for other orthopedic aftercare (principal); Z96.651 Presence of right artificial knee joint
CPT/HCPCS: 99213

== ENCOUNTER 2025-05-13 11:14 | Outpatient (REF) | payer BC, SELFPAY ==
--- NOTE | ~2025-05-13 | XR_ITS ---
EXAMINATION: XR KNEE, RIGHT CLINICAL INFORMATION: M25.561 - Pain in right knee COMPARISON: August 16, 2022 and January 14, 2022 TECHNIQUE: Lateral and sunrise views of the right knee. FINDINGS: There is subtle loosening along the femoral and tibial plateau components of the knee prosthesis without gross malalignment. XR/XR knee RT 3V IMPRESSION: Subtle loosening at the femoral and tibial plateau components of the knee prosthesis Electronically signed by: Tomer Fitzgerald MD 05/13/2025 01:00 PM EDT
--- NOTE | ~2025-05-13 | XR_ITS ---
EXAMINATION: XR KNEE, LEFT CLINICAL INFORMATION: M25.562 - Pain in left knee COMPARISON: January 14, 2022. TECHNIQUE: AP view both knees in standing position. Lateral and sunrise views of the left knee. FINDINGS: Total metallic prosthesis with an tibial plateau and femoral component well-seated in the osseous structures, bilaterally. There is some loosening in both femoral and tibial plateau component, bilaterally. No gross malalignment. XR/XR knee LT 3V IMPRESSION: Subtle loosening along the femoral and tibial plateau components of the knee prosthesis, both knees. Electronically signed by: Tomer Fitzgerald MD 05/13/2025 12:58 PM EDT
== END 2025-05-13 11:15 | disposition home or self-care (01) ==
LOC: HO.HOSX 11:14
PROVIDERS: PCP Internal Medicine; Visit Provider Orthopaedic Surgery
DX: M25.561 Pain in right knee (principal); M25.562 Pain in left knee; Z96.651 Presence of right artificial knee joint
CPT/HCPCS: 73562

== ENCOUNTER → 2025-05-13 11:19 | Outpatient (BNV) | payer BC, SELFPAY | PROVIDERS: PCP Internal Medicine; Visit Provider Radiology Diagnostic Radiology | DX: T84.031A Mechanical loosening of internal left hip prosthetic joint, initial encounter (principal); T84.032A Mechanical loosening of internal right knee prosthetic joint, initial encounter | CPT/HCPCS: 73562 ==

== ENCOUNTER 2025-08-27 08:06 | Day surgery (SDC) | payer BC, SELFPAY ==
[2025-08-27 08:21] VITALS: BMI 38.4
[2025-08-27] MEDS: Lactated Ringers 1,000 ML 100 ML IVCONT (08:25)
[2025-08-27 08:50] VITALS: BP 148/81; PULSE 76; RESP 18; TEMP 36.6; O2SAT 96
--- NOTE | 2025-08-27 08:58 | P.HPSUR_ITS ---
Pre-Procedural Eval Section A - 24 Hr Update-Section A only Date of Service: 08/27/25 Section B - Complete if H&P > 30 days Chief Complaint: screening,gerd, Relevant Family History (Specify if Yes): No Relevant Social History: None Present Medications: see Short Stay Collaborative assessment Medical History: Significant History (Post-cholecystectomy syndrome Gallstones GERD (gastroesophageal reflux disease) Osteoarthritis Sleep apnea Hypothyroid Anxiety and depression Fracture of fifth metatarsal bone) History of Previous Operations: Relevant previous surgery/procedure and date(s) (Hx of cholecystectomy (~2022) Hx of elbow surgery Hx of tonsillectomy Hx of appendectomy Hx of arthroscopy of right knee History of salpingectomy History of decompression of ulnar nerve History of dilatation and curettage History of esophagogastroduodenoscopy (EGD) History of detached retina repair ) Allergies: Allergies Allergy/AdvReac Type Severity Reaction Status Date / Time fish derived (fish) Allergy Severe anaphylaxis Verified 08/27/25 08:22 (anchovies) lamotrigine Allergy Intermediate Difficulty Verified 08/27/25 08:22 Breathing Penicillins Allergy Intermediate itch Verified 08/27/25 08:22 Peppers, Jalapeno Allergy Intermediate vomiting/di Verified 08/27/25 08:22 arrhea Sulfa (Sulfonamide Allergy Intermediate bleeding Verified 08/27/25 08:22 Antibiotics) of eye w/sulfa eye drops Review of Systems Sugical H&P ROS: Negative: Constitution, Cardiovascular, Respiratory, Neurological, Psychiatric, Hem-Onc, Allergic/Immunologic, Gastrointestinal, Genitourinary, Musculoskeletal, Integumentary, Endocrine and Eyes/Ea rs/Nose/Throat Exam Surgical H&P Exam: Normal: HEENT, Normal: Heart, Normal: Lungs, Normal: Extremities, Normal: Abdomen, Normal: Skin and Normal: Neurological Plan Diagnosis/Plan: Unchanged I have reviewed the history and physical and performed a pertinent physical examination on my patient. No changes have occurred unless specified. Time Spent With Patient Time: Total time managing care of this patient today ____ minutes.
--- NOTE | 2025-08-27 09:00 | HO.ANESPROP2 ---
Documented by User: Mago Gómez NP 08/22/25 12:11 HPI - Anesthesia Eval Consult details Narrative: 64 yr old female for Upper Endoscopy and Colonoscopy QUINTON GERD: on PPI PMFSH Active Problems Active Problems: All Active Problems Post-cholecystectomy syndrome (Acute) Status post total left knee replacement (Acute) S/P total knee arthroplasty (Acute) Tricompartment osteoarthritis of left knee (Acute) Fracture of fifth metatarsal bone (Acute) Past Medical History Medical History Post-cholecystectomy syndrome Gallstones GERD (gastroesophageal reflux disease) Osteoarthritis Sleep apnea Hypothyroid Anxiety and depression Fracture of fifth metatarsal bone Family History Family history of problems with anesthesia: No Surgical History Surgical History Hx of cholecystectomy (~2022) Hx of elbow surgery Hx of tonsillectomy Hx of appendectomy Hx of arthroscopy of right knee History of salpingectomy History of decompression of ulnar nerve History of dilatation and curettage History of esophagogastroduodenoscopy (EGD) History of detached retina repair H/O colonoscopy History of total right knee replacement History of Problems with Anesthesia: No Social History Social History Household Members: None Housing: Apartment Are you a primary health care manager to a significant other at home: No Do you presently have visiting nurse or other home services: No Patient Tobacco Use Status: Never used Tobacco Have you been hit, kicked, punched, or otherwise hurt by someone within the past year? If so, by whom?: No Are you DNR?: No Advance Directives: No Advance Directives Information Provided: Yes service: No Current occupational status: employed Current occupation: [employer]rt [employer] Meds Allergies Allergy/AdvReac Type Severity Reaction Status Date / Time fish derived (fish) Allergy Severe anaphylaxis Verified 08/27/25 08:22 (anchovies) lamotrigine Allergy Intermediate Difficulty Verified 08/27/25 08:22 Breathing Penicillins Allergy Intermediate itch Verified 08/27/25 08:22 Peppers, Jalapeno Allergy Intermediate vomiting/di Verified 08/27/25 08:22 arrhea Sulfa (Sulfonamide Allergy Intermediate bleeding Verified 08/27/25 08:22 Antibiotics) of eye w/sulfa eye drops Home Medications ?Medication ?Instructions ?Recorded ?Confirmed ?Last Taken ?Type bupropion HCl 300 mg 24 hr tablet, 1 tab PO DAILY 10/08/21 08/27/25 Unknown History extended release levothyroxine 25 mcg tablet 50 mcg PO 2XW 10/08/21 08/27/25 Unknown History lorazepam 0.5 mg tablet 0.5 tab PO QAM 10/08/21 08/27/25 Unknown History multivitamin 1 tab PO DAILY 10/08/21 08/27/25 Unknown History acetaminophen 650 mg 1,300 mg PO Q12H 10/09/21 08/27/25 Unknown History tablet,extended release omeprazole 20 mg capsule,delayed 20 mg PO DAILY 10/09/21 08/27/25 Unknown History release Assessment and Plan Final Anesthetic Review Family History of Problems with Anesthesia: No History of Problems with Anesthesia: No Documented by User: Negra Parker DO 08/27/25 09:02 COUNTS INCLUDE 234 BEDS AT [facility] Past Medical History Medical History Post-cholecystectomy syndrome Gallstones GERD (gastroesophageal reflux disease) Osteoarthritis Sleep apnea Hypothyroid Anxiety and depression Fracture of fifth metatarsal bone Family History Family history of problems with anesthesia: No Surgical History Surgical History Hx of cholecystectomy (~2022) Hx of elbow surgery Hx of tonsillectomy Hx of appendectomy Hx of arthroscopy of right knee History of salpingectomy History of decompression of ulnar nerve History of dilatation and curettage History of esophagogastroduodenoscopy (EGD) History of detached retina repair H/O colonoscopy History of total right knee replacement History of Problems with Anesthesia: No Social History Social History (Reviewed 11/07/24 @ 08:53 by Thomas Wyatt [facility]) Household Members: None Housing: Apartment Are you a primary health care manager to a significant other at home: No Do you presently have visiting nurse or other home services: No Patient Tobacco Use Status: Never used Tobacco Have you been hit, kicked, punched, or otherwise hurt by someone within the past year? If so, by whom?: No Are you DNR?: No Advance Directives: No Advance Directives Information Provided: Yes service: No Current occupational status: employed Current occupation: [employer]rt handed Meds Allergies Allergy/AdvReac Type Severity Reaction Status Date / Time fish derived (fish) Allergy Severe anaphylaxis Verified 08/27/25 08:22 (anchovies) lamotrigine Allergy Intermediate Difficulty Verified 08/27/25 08:22 Breathing Penicillins Allergy Intermediate itch Verified 08/27/25 08:22 Peppers, Jalapeno Allergy Intermediate vomiting/di Verified 08/27/25 08:22 arrhea Sulfa (Sulfonamide Allergy Intermediate bleeding Verified 08/27/25 08:22 Antibiotics) of eye w/sulfa eye drops Home Medications ?Medication ?Instructions ?Recorded ?Confirmed ?Last Taken ?Type bupropion HCl 300 mg 24 hr tablet, 1 tab PO DAILY 10/08/21 08/27/25 Unknown History extended release levothyroxine 25 mcg tablet 50 mcg PO 2XW 10/08/21 08/27/25 Unknown History lorazepam 0.5 mg tablet 0.5 tab PO QAM 10/08/21 08/27/25 Unknown History multivitamin 1 tab PO DAILY 10/08/21 08/27/25 Unknown History acetaminophen 650 mg 1,300 mg PO Q12H 10/09/21 08/27/25 Unknown History tablet,extended release omeprazole 20 mg capsule,delayed 20 mg PO DAILY 10/09/21 08/27/25 Unknown History release Exam Exam Date and Time: 08/27/25 0900 Height,Weight and Vital Signs: Height 5 ft 6 in Weight 107.8 kg Vital Signs Temperature 97.9 F 08/27/25 08:50 Pulse Rate 76 08/27/25 08:50 Respiratory Rate 18 08/27/25 08:50 Blood Pressure 148/81 H 08/27/25 08:50 Pulse Oximetry 96 08/27/25 08:50 Oxygen Delivery Method Room Air 08/27/25 08:50 Temperature 97.9 F 08/27/25 08:50 Pulse Rate 76 08/27/25 08:50 Respiratory Rate 18 08/27/25 08:50 Blood Pressure 148/81 H 08/27/25 08:50 Pulse Oximetry 96 08/27/25 08:50 Oxygen Delivery Method Room Air 08/27/25 08:50 Airway Mallampati Class: II TM Dist: >3cm Neck ROM: Full Loose/Missing/Broken Teeth: No (patient denies any loose or broken teeth) Heart: S1S2 Lungs: CTAB Assessment and Plan Assessment Anesthesia Assessment: Anesthesia Plan Discussed and Chart Reviewed Final Anesthetic Review Family History of Problems with Anesthesia: No History of Problems with Anesthesia: No NPO: Yes ASA Class: II Final Preanesthetic Review: No Changes in Pt Med Stat, Meds/Allgs Chart Reviewed, Consent Obtained/Reviewed and Anes Risks/Benef Reviewed Patient Risk: Low Procedure Risk: Low Anesthetic Plan Anesthetic Plan: MAC: and Agree w/ Assess. and Plan Disposition: Standard PACU
[2025-08-27 09:43] VITALS: BP 112/61; PULSE 68; RESP 14; TEMP 36.3; O2SAT 96
--- NOTE | 2025-08-27 09:43 | P.OPN-COLO_ITS ---
Colonoscopy Operative Note Operative Note Date of Service: 08/27/25 Narrative: Operative Information Procedure Description: EGD, Colonoscopy Indication: GERD, colon screening Anesthesia: MAC FLEXIBLE TRANSORAL UPPER GASTROINTESTINAL ENDOSCOPY AND COLONOSCOPY PROCEDURE NOTE UPPER ENDOSCOPY Consent: Indications for the procedure and potential complications of bleeding, perforation, reaction to medications and missed diagnosis were discussed with the patient and informed consent was obtained. Instrument: Olympus GIF H 190 J mid size upper endoscope Monitoring: Vital signs and clinical assessment, continuous EKG monitoring, Pulse oximetry, Carbon Dioxide monitoring and blood pressure monitoring were done throughout the procedure. Procedure: The patient was placed in the left lateral decubitis position and pre-procedure medications were administered and a bite block was placed. The endoscope was inserted into the mouth and advanced under direct vision to the third part of duodenum. A careful inspection was made as the upper endoscope was withdrawn including a retroflexed examination of the proximal stomach; Findings and interventions are described below. Findings: Larynx:normal Esophagus: GE junction at 35 cm, diaphragm hiatus at 37 cm, with 2 cm fixed hiatal hernia. bx taken from distal esophagus and GEJ. Stomach: Streaky erythema. Biopsies were obtained. Grade 2 flap valve on retroflexed examination of the cardia. Several medium sized and small fundic gland appearing polyps, larger ones measuring about 10-12 mm removed with cold snare and retrieved with net Duodenum: Normal bulb and descending duodenum, Intervention: Biopsies as noted above, cold snare and net COLONOSCOPY Instrument: Olympus variable stiffness pediatric scope 190L Colonoscopy Monitoring: Vital signs and clinical assessment, continuous EKG monitoring, Pulse oximetry, Carbon Dioxide monitoring and blood pressure monitoring were done throughout the procedure. Colon withdrawal time was 12 minutes. Procedure: The patient was placed in the left lateral decubitis position and pre-procedure medications were administered. After a digital rectal examination of the ano-rectum, the video colonoscope was inserted into the rectum and advanced through the colon to the cecum/TI. The colonoscope was slowly withdrawn in a retrograde panoramic fashion and the colon mucosa was carefully examined including a retroflexed view of the rectum. Findings and interventions are described below. Procedure Difficulty:moderate Findings: Terminal Ileum-normal Cecum:normal right sided retroflexion- normal Ascending Colon: normal Transverse Colon -normal Descending Colon:normal Sigmoid Colon: moderate diverticulosis Rectum: Retroflexion with small internal hemorrhoids, grade I Anorectum - normal Colon preparation: [place] Bowel Preparation Scale Right colon; 1-2 Transverse colon: 2- Left colon; 2 (0 = Unprepared colon segment with mucosa not seen due to solid stool that cannot be cleared. 1 = Portion of mucosa of the colon segment seen, but other areas of the colon segment not well seen due to staining, residual stool and/or opaque liquid. 2 = Minor amount of residual staining, small fragments of stool and/or opaque liquid, but mucosa of colon segment seen well. 3 = Entire mucosa of colon segment seen well with no residual staining, small fragments of stool or opaque liquid) Impression and Post Procedure Diagnosis: Endoscopy Findings: hiatal hernia fundic gland polyps gastritis Colonoscopy Findings: diverticulosis internal hemorrhoids Plan: Await Pathology results Repeat Colonoscopy in 3-4 years due to areas of fair prep on right or earlier if clinically indicated High fiber diet leaflet avoid straining at stool, epsom salts and sitz bath, anusol supps or cream reflux precautions Above findings were reviewed with the patient and relevant handouts were provided if indicated.
[2025-08-27 10:02] VITALS: BP 120/65; PULSE 67; RESP 13; TEMP 36.4; O2SAT 96
== END 2025-08-27 10:58 | disposition home or self-care (01) ==
PROVIDERS: PCP Internal Medicine; Visit Provider Internal Medicine Gastroenterology
PROC: (CPT 45378; principal; 2025-08-27 10:10)
DX: Z12.11 Encounter for screening for malignant neoplasm of colon (principal); K21.9 Gastro-esophageal reflux disease without esophagitis; Z86.0101 Personal history of adenomatous and serrated colon polyps; K52.9 Noninfective gastroenteritis and colitis, unspecified; K91.5 Postcholecystectomy syndrome; K64.0 First degree hemorrhoids; K44.9 Diaphragmatic hernia without obstruction or gangrene; L53.9 Erythematous condition, unspecified; K57.30 Diverticulosis of large intestine without perforation or abscess without bleeding
CPT/HCPCS: 45378; 43239; 43251; 88305; 88313; 88342; J2003; J2704

== ENCOUNTER → 2025-08-27 08:06 | Outpatient (BNV) | payer BC, SELFPAY | PROVIDERS: PCP Internal Medicine; Visit Provider Internal Medicine Gastroenterology | DX: Z12.11 Encounter for screening for malignant neoplasm of colon (principal); K57.30 Diverticulosis of large intestine without perforation or abscess without bleeding; K64.0 First degree hemorrhoids; K21.9 Gastro-esophageal reflux disease without esophagitis; K31.7 Polyp of stomach and duodenum; K29.70 Gastritis, unspecified, without bleeding | CPT/HCPCS: 43251; 45378 ==

== ENCOUNTER 2025-10-15 15:57 | Outpatient (AMB) | payer BC, SELFPAY ==
--- NOTE | 2025-10-15 15:58 | A.OFFVIS_ITS ---
Vital Signs 10/15/25 16:04 Height 5 ft 6 in Weight 230 lb BMI 37.1 BP 156/90 H Blood Pressure Location Rt brachial Position Sitting Pulse 84 Pulse Source Pulse Oximeter Pulse Oximetry (%) 96 Oxygen Delivery Method Room Air Intake Visit Reasons: S/P double; Dr. Wilkinson Intake Note: Est pt for mgmt of GERD. S/P Double. CC; Pt denies any new GI sx or concerns at this time. Correspondence Clerk Required: No Accompanied by: Self / Same As Patient Allergies fish derived (fish) Allergy (Severe, Verified 10/15/25 16:02) anaphylaxis (anchovies) lamotrigine Allergy (Intermediate, Verified 10/15/25 16:02) Difficulty Breathing Penicillins Allergy (Intermediate, Verified 10/15/25 16:02) itch Peppers, Jalapeno Allergy (Intermediate, Verified 10/15/25 16:02) vomiting/diarrhea Sulfa (Sulfonamide Antibiotics) Allergy (Intermediate, Verified 10/15/25 16:02) bleeding of eye w/sulfa eye drops HPI HPI S/P double; Dr. Wilkinson: Details: LAST VISIT: Screen for colon cancer Postprandial diarrhea Postprandial abdominal bloating Post-cholecystectomy syndrome GERD (gastroesophageal reflux disease) Plan Patient denies any cardiac or respiratory symptoms.? Denies any issues with anesthesia in the past.? History of cholecystectomy in 2022. Patient reports that since then she has been having frequent postprandial diarrhea. Patient reports that sometimes does not matter what she eats. Will order thyroid study, CRP to rule out inflammatory processes, B12, folate and vitamin-D level. Patient was encouraged to start taking fiber with probiotics. If she continues to have symptoms like this we can start her on cholestyramine. Patient also reports that she was diagnosed with reflux on omeprazole. Patient had choking episodes when food got stuck in her esophagus and she had upper endoscopy in order to retrieve it. Patient reports that she no longer has these episodes. States that omeprazole works well for her. Patient reports that she has been on it for very long time. Patient will be sent for upper endoscopy. No history of infectious diseases in the past or present.? Not on any anticoagulation therapy.? No family history of colon cancer.? Patient denies melena, hematochezia, unintentional weight loss or ribbon like stools.? Discussed at length the pre-procedure,? prep, diet & medications as well as what to expect prior, during and after the procedure.?? Stressed the importance of good bowel prep.? Recommended the use of Vaseline or Calmoseptine OTC & baby wipes with bowel movements to promote comfort.? ?Patient verbalizes understanding and agrees to plan of care.? She was given the opportunity to ask questions and all questions answered.? We will see her after the procedure.? Orders TSH reflex Free T4 Today K59.00 C Reactive Protein Today K58.9 Vitamin B12 and Folate Today R19.7 Vitamin D 25-OH (D2 and D3) Today E55.9 New bisacodyl (Dulcolax (bisacodyl)) take 4 tabs at noon the day before your colonoscopy 20 mg (4 x 5 mg) PO ONCE 1 day 4 tabs 0RF Z12.11 polyethylene glycol 3350 (Miralax) As directed by gastroenterology department at [facility] 238 grams PO ONCE 238 grams 0RF Z12.11 UPPER ENDOSCOPY AND COLONOSCOPY Findings: Larynx:normal Esophagus: GE junction at 35 cm, diaphragm hiatus at 37 cm, with 2 cm fixed hiatal hernia. bx taken from distal esophagus and GEJ. Stomach: Streaky erythema. Biopsies were obtained. Grade 2 flap valve on retroflexed examination of the cardia. Several medium sized and small fundic gland appearing polyps, larger ones measuring about 10-12 mm removed with cold snare and retrieved with net Duodenum: Normal bulb and descending duodenum, Intervention: Biopsies as noted above, cold snare and net COLONOSCOPY Instrument: Olympus variable stiffness pediatric scope 190L Colonoscopy Monitoring: Vital signs and clinical assessment, continuous EKG monitoring, Pulse oximetry, Carbon Dioxide monitoring and blood pressure monitoring were done throughout the procedure. Colon withdrawal time was 12 minutes. Procedure: The patient was placed in the left lateral decubitis position and pre-procedure medications were administered. After a digital rectal examination of the ano-rectum, the video colonoscope was inserted into the rectum and advanced through the colon to the cecum/TI. The colonoscope was slowly withdrawn in a retrograde panoramic fashion and the colon mucosa was carefully examined including a retroflexed view of the rectum. Findings and interventions are described below. Procedure Difficulty:moderate Findings: Terminal Ileum-normal Cecum:normal right sided retroflexion- normal Ascending Colon: normal Transverse Colon -normal Descending Colon:normal Sigmoid Colon: moderate diverticulosis Rectum: Retroflexion with small internal hemorrhoids, grade I Anorectum - normal Colon preparation: [place] Bowel Preparation Scale Right colon; 1-2 Transverse colon: 2- Left colon; 2 (0 = Unprepared colon segment with mucosa not seen due to solid stool that cannot be cleared. 1 = Portion of mucosa of the colon segment seen, but other areas of the colon segment not well seen due to staining, residual stool and/or opaque liquid. 2 = Minor amount of residual staining, small fragments of stool and/or opaque liquid, but mucosa of colon segment seen well. 3 = Entire mucosa of colon segment seen well with no residual staining, small fragments of stool or opaque liquid) Impression and Post Procedure Diagnosis: Endoscopy Findings: hiatal hernia fundic gland polyps gastritis Colonoscopy Findings: diverticulosis internal hemorrhoids Plan: Await Pathology results Repeat Colonoscopy in 3-4 years due to areas of fair prep on right or earlier if clinically indicated High fiber diet leaflet avoid straining at stool, epsom salts and sitz bath, anusol supps or cream reflux precautions PATHOLOGY Diagnosis A. Stomach, random, biopsy: Gastric antral and body mucosa with minimal chronic inactive gastritis; negative for H. pylori, intestinal metaplasia and dysplasia. B. Gastroesophageal junction, biopsy: Squamocolumnar mucosa with mild chronic inflammation; negative for intestinal metaplasia and dysplasia. C. Esophagus, distal, biopsy: Squamous mucosa with no specific change; no columnar mucosa present. D. Gastric polyps: Fundic gland polyps, 3 with focal reactive changes and mild chronic focal active inflammation; negative for H. pylori, intestinal metaplasia and dysplasia TODAY'S VISIT Patient is here today for follow-up and to discuss upper endoscopy and colonoscopy results. Patient denies any ill effects from prep, anesthesia or procedure itself. Patient reports to be feeling fairly well. Patient denies any acid reflux, dyspepsia, dysphagia or odynophagia. Patient reports to have no GI concerning symptoms. Takes omeprazole daily in her symptoms of acid reflux are suppressed. Patient had suboptimal prep no polyps found and recommendation was for patient to return for colorectal screening in 3 years. Patient denies any GI concerning symptoms today or in the past several months. Moving her bowels daily without any issues. [facility] Medical History Post-cholecystectomy syndrome Gallstones GERD (gastroesophageal reflux disease) Osteoarthritis Sleep apnea Hypothyroid Anxiety and depression Fracture of fifth metatarsal bone Surgical History Hx of cholecystectomy (~2022) Hx of elbow surgery Hx of tonsillectomy Hx of appendectomy Hx of arthroscopy of right knee History of salpingectomy History of decompression of ulnar nerve History of dilatation and curettage History of esophagogastroduodenoscopy (EGD) History of detached retina repair H/O colonoscopy History of total right knee replacement Social History Household Members: None Housing: Apartment Are you a primary insurance healthcare representative to a significant other at home: No Do you presently have visiting nurse or other home services: No Patient Tobacco Use Status: Never used Tobacco service: No Current occupational status: employed Current occupation: [employer]/rt handed Review of Systems Const Denies weight gain and Denies weight loss ENT Reports no additional complaints, Denies dysphagia and Denies odynophagia Card Reports no additional complaints Resp Reports no additional complaints GI Denies abdominal pain, Denies belching, Denies melena, Reports bloating, Denies change in bowel habits, Reports GI cramping, Denies dysphagia, Denies excessive flatus, Denies dyspepsia, Denies heartburn, Denies diarrhea, Reports loose stools, Denies nausea, Denies odynophagia and Denies vomiting Reports no additional complaints Musc Reports no additional complaints Neuro Reports no additional complaints Psych Reports no additional complaints Endo Reports no additional complaints Physical Exam Vital Signs: Last Vital Signs Pulse 84 10/15/25 16:04 BP 156/90 H 10/15/25 16:04 Pulse Ox 96 10/15/25 16:04 Oxygen Delivery Method Room Air 10/15/25 16:04 BMI result Body Mass Index 37.1 Const General: healthy appearing and no acute distress Nutritional Appearance: obese Orientation/consciousness: patient oriented x3 Resp Effort & Inspection: normal respiratory effort, able to speak in complete sentences, no tracheal deviation and symmetric chest movement Auscultation: clear to auscultation bilaterally Cardio Rate: regular rate GI Inspection: Yes normal to inspection, No distended and Yes obesity Palpation (GI): Soft to palpation, not firm, nontender and No hepatosplenomegaly present Auscultation: normal bowel sounds General: Yes no CVA tenderness Back/Spine/Pelvis Back: no CVA tenderness Skin General skin exam: elasticity normal, turgor normal and dry skin Neuro General: patient oriented x3 Psych Appearance: grossly normal Mental Status: mental status grossly normal Results Reviewed Results Reviewed: Laboratory Tests 11/07/24 10:11 C-Reactive Protein 0.37 Vitamin B12 370 25-OH Vitamin D Total 31 TSH 5.02 H Free T4 1.00 Assessment & Plan Assessment & Plan (1) Postprandial diarrhea: Code(s): K52.9 - Noninfective gastroenteritis and colitis, unspecified (2) Postprandial abdominal bloating: Code(s): R14.0 - Abdominal distension (gaseous) (3) Gastroesophageal reflux disease: Code(s): K21.9 - Gastro-esophageal reflux disease without esophagitis Qualifiers: Esophagitis presence: without esophagitis Qualified Code(s): K21.9 - Gastro-esophageal reflux disease without esophagitis (4) Status post colonoscopy: Code(s): Z98.890 - Other specified postprocedural states Plan Colonoscopy 3 years due to suboptimal prep. Patient can continue taking omeprazole daily. Avoid dietary triggers in late night snacking. Staying upright for minimum 3 hours after meals discussed with patient. Continue low FODMAP diet. Continue high-fiber diet with pre in probiotics. Patient will follow-up in our office as needed. She is agreeable to this plan and verbalizes understanding of instructions. She was given the opportunity to ask questions and all questions answered. Thank you for allowing me to participate in her care Medications: New benzonatate 100 mg PO BID PRN 60 caps 0RF cough Coding Level of Care Code Est Pt Level 3 (00483) Diagnoses Postprandial diarrhea K52.9 Postprandial abdominal bloating R14.0 Gastroesophageal reflux disease without esophagitis K21.9 Esophagitis presence: without esophagitis Status post colonoscopy Z98.890 Time Spent (min) 30 Comment 20 minutes spent with patient and additional 10 minutes spent reviewing her records
[2025-10-15 16:04] VITALS: BP 156/90; PULSE 84; O2SAT 96; BMI 37.1
--- OUTSIDE RECORDS SUMMARY | 2025-10-15 20:04 | XMS_ITS | Encounter Summary ---
Author Organization [facility] Address [address] [place] [address] Care Team Providers Care Copyholder Name Role Phone Unavailable Primary Care Provider Unavailabl e Encounter Details Date Type Department Care Team (Late st Contact Info) Description 09/26/2015 Scanned Document [address] [address] Provider, Generic Social History Tobacco Use Types Packs/Day Years Used Date Smoking Tobacco: Never Assessed Comments Unknown Sex and Gender Information Value Date Recorded Sex Assigned at Not on file Legal Sex Female 12:28 PM EDT Gender Identity Not on file Sexual Orientation Not on file documented as of this encounter Plan of Treatment Not on file documented as of this encounter Visit Diagnoses Not on filedocumented in this encounter
--- OUTSIDE RECORDS SUMMARY | 2025-10-15 20:04 | XMS_ITS | Patient Health Record ---
Author Organization [facility] Address [address] [place] [address] Care Team Providers Care Psychology Fellow Name Role Phone STAN ACEVDEO MD Primary Care Provider LESLIE Jackson [phone] Allergies Allergen (clinical drug ingredient) Drug/Non Drug Allergy documented on EMR Reaction Allergy Type Onset Date Status ANCHOVIES (uncoded) Unknown Allergy Active JALEPENOS (uncoded) Unknown Allergy Active WINE AGED IN OAK (uncoded) Unknown Allergy Active Penicillin Unknown Drug Allergy Active Substance with sulfonamide structure and antibacterial mechanism of action (substance) Sulfa Antibiotics Unknown Drug Allergy Active Sulfite and/or sulfite derivative (FN) Sulfites Unknown Drug Allergy Active Reason For Referral No Information Medications Medication SIG (Take, Route, Frequency, Duration) Notes Start Date End Date Status Aleve 220 MG Capsule 1 cap(s) orally once a day Active ZyrTEC Allergy 5 MG TABLET 1 TAB(S) ORALLY ONCE A DAY PRN; Duration: 30 DAY(S) NAME ONLY Conversion from Multum Review and pick correct strength-formulati on from [employer] options. If intended option is not shown, discontinue and re-order from Quick Search. Active buPROPion HCl ER (XL) 300 MG Tablet Extended Release 24 Hour 1 tab(s) orally every 24 hours; Duration: 30 day(s) Active Omeprazole 20 MG Capsule Delayed Release 1 cap(s) orally once a day Active Multivitamin 1 TAB ONCE DAILY NAME ONLY Conversion from Multum Review and pick correct strength-formulati on from [employer] options. If intended option is not shown, discontinue and re-order from Quick Search. Active Golytely - POWDER FOR RECONSTITUTION 240 ML ORALLY EVERY 15 MINUTES; Duration: 16 DOSE(S) NAME ONLY Conversion from Multum Review and pick correct strength-formulati on from [employer] options. If intended option is not shown, discontinue and re-order from Quick Search. Active Ibuprofen 200 MG 3 TABLETS ORALLY Q8H PRN WITH FOOD NAME ONLY Conversion from Multum Review and pick correct strength-formulati on from [employer] options. If intended option is not shown, discontinue and re-order from Quick Search. 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: no alcohol use: yes 3 drinks per yea rs drug use: no Hobbies/Exercise habits: swim, w alk Coffee/Tea/Soda: yes Coffee 3 , Tea occ Marital Status single experience no smokers in household no Problems Problem Type SNOMED Code ICD Code Onset Dates Problem Status W/U Status Risk Notes Problem History of polyp of colon (situation) (300705189) History of colonic polyps (Z86.010) Active confirmed Problem Gastroesophageal reflux disease without esophagitis (954167485) Gastroesophageal reflux disease without esophagitis (K21.9) Active confirmed Plan Of Treatment No Information Insurance Providers Payer Name Payer Address Payer Phone Subscriber Number Group Number Insured Name Patient Relationship to Insured Coverage Start Date Coverage End Date [facility] [address] [place], [place] [id number] MAXIMILIANO Ruffin ALYSIA Self - patient is the insured 8 Medical (General) History Medical History History ICD Code depression allergies hypothyroid Colon08/02/11-1cmDesc polyp@30cm-Few tics - Rec [id number] food item removed from [place]- Dr. Estela Simmons 02/2014- beleived secondary [facility] Surgical History Surgery Date(Month/Year) steak removed from esophagus 02/2014 uterine cyst ectopic appendectomy elbow surgery knee surgery tonsillectomy Hospitalization History Reason Date(Month/Year) as above only
--- OUTSIDE RECORDS SUMMARY | 2025-10-15 20:04 | XMS_ITS | Clinical Summary ---
Author Organization [facility] Address [address] [place] [address] Care Team Providers Care Tomography Technologist Name Role Phone Unavailable Primary Care Provider [...] Health Maintenance Due Date Last Done Comments Advance Care Planning 1960 Hepatitis C Virus Screening 1960 HIV Screening 1973 DTaP/Tdap/Td Vaccines (1 - Tdap) 1979 Pneumococcal Vaccines 50+ (1 of 1 - PCV) 2010 Zoster (Shingles) Vaccine (1 of 2) 2010 COVID-19 Vaccine ( - 2024-2 6 season) 2025 RSV Vaccine 50 years and old er and Patients (1 - 1-dose 75+ series) 2035 Hepatitis B Vaccines Aged Out No long er eligible based on patient's age to complete this topic
--- OUTSIDE RECORDS SUMMARY | 2025-10-15 20:04 | XMS_ITS | Clinical Summary ---
Author Organization [facility] Prior to 03/30/[address] [place] [id number] Care Team Providers Care Maintenance Welder Name Role Phone Randa Wick MD Primary Care Provider [phone] Allergies Active Allergy Reactions Criticality Noted Date [...] 2) 2010 Influenza Vaccine (#1) 2025 08/09/2019 Fall Risk Assessment 2025 Osteoporosis Screening (DEXA Scan) 2025 Pneumococcal Vaccine (1 of 1 - PCV) [...] this topic Medical Devices Implanted Type Area Head Of [employer] Device Identifier Shelf Expiration Date Model / Serial / Lot Cement Bone Simplex High Viscosity 20ml 40gm 10\Pack - [id number] - [id number] Implanted:Qty: 1 on 08/08/2019 by Carlos Alberto Patterson MD at [facility] and Med Right: Knee [employer] 12/28/2020 6194-1-010 / / [id number] Cement Bone Simplex High Viscosity 20ml 40gm 10\Pack - [id number] - [id number] Implanted:Qty: 1 on 08/08/2019 by Carlos Alberto Patterson MD at [facility] and [facility] Right: Knee [employer] 12/28/2020 6194-1-010 / / [id number] Component Triathlon 5 Cemented Posterior Stabilized Femoral - [id number] - [id number] Implanted:Qty: 1 on 08/08/2019 by Carlos Alberto Patterson MD at [facility] and [facility] Right: Knee [employer] 04/01/2024 5515-F-502 / / [id number] Baseplate Triathlon 4 Primary Cemented Tibial Knee - [id number] - [id number] Implanted:Qty: 1 on 08/08/2019 by Carlos Alberto Patterson MD at [facility] and [facility] Right: Knee [employer] 06/05/2024 5520-B-400 / / [id number] Triathlon Ps Insert - Size 4 10mm X3 - [id number] - [id number] Implanted:Qty: 1 on 08/08/2019 by Carlos Alberto Patterson MD at [facility] and [facility] Right: Knee [employer] 07/24/2023 5532-G-410 -E / / [id number] Component Patella 35mm Elle 10mm Thick Asymmetric Triathlon - [id number] - [id number] Implanted:Qty: 1 on 08/08/2019 by Carlos Alberto Patterson MD at [facility] and [facility] Right: Knee [employer] 03/07/2024 5551-L-350 / / [id number] Advance Directives For more information, please contact: [phone] Latest Code Status on File Code Status [...] will or healthcare instructions . Care Teams Maintenance Welder Relationship Specialty Start Date End Date Randa Wick MD [address] [address] PCP - General Internal Medicine 07/23/19
--- OUTSIDE RECORDS SUMMARY | 2025-10-15 20:04 | XMS_ITS | Clinical Summary ---
Author Organization [facility] Address [address] [place] [address] Care Team Providers Care Inspector Barrel Name Role Phone Randa Wick MD Primary Care Provider [phone] Surgical History Surgery Date Site/Laterality Comments TONSILLECTOMY [...] KNEE; Surgeon: Carlos Alberto Patterson MD; [facility]: [facility] Service: Orthopedics; Laterality: [...] on file Sexual Orientation Not on file Plan of Treatment Health Maintenance Due Date Last Done Comments Breast Cancer Screening 1960 DTaP,Tdap,and Td Vaccines (1 - Tdap) 1979 Cervical Cancer Screening: P ap Smear 1981 Pneumococcal Vaccine: 50+ Ye ars (1 of 1 - PCV) 2010 Zoster Vaccines (1 of 2) 2010 Depression Screening 10/31/2024 COVID-19 Vaccine (1 - 2024-2 6 season) 2025 Influenza Vaccine (#1) 2025 08/09/2019 RSV Immunization [...] this topic Medical Devices Implanted Type Area Air Traffic Control Specialist Center Device Identifier Shelf Expiration Date Model / Serial / Lot Cement Bone Simplex High Viscosity 20ml 40gm 10\Pack - [id number] Implanted:Qty: 1 on 08/08/2019 by Carlos Alberto Patterson MD Right: Knee [employer] 12/28/2020 6194-1-010 / / [id number] Cement Bone Simplex High Viscosity 20ml 40gm 10\Pack - [id number] Implanted:Qty: 1 on 08/08/2019 by Carlos Alberto Patterson MD Right: Knee [employer] 12/28/2020 6194-1-010 / / [id number] Component Triathlon 5 Cemented Posterior Stabilized Femoral - [id number] Implanted:Qty: 1 on 08/08/2019 by Carlos Alberto Patterson MD Right: Knee [employer] 04/01/2024 5515-F-502 / / [id number] Baseplate Triathlon 4 Primary Cemented Tibial Knee - [id number] Implanted:Qty: 1 on 08/08/2019 by Carlos Alberto Patterson MD Right: Knee [employer] 06/05/2024 5520-B-400 / / [id number] Triathlon Ps Insert - Size 4 10mm X3 - [id number] Implanted:Qty: 1 on 08/08/2019 by Carlos Alberto Patterson MD Right: Knee [employer] 07/24/2023 5532-G-410 -E / / [id number] Component Patella 35mm Elle 10mm Thick Asymmetric Triathlon - [id number] Implanted:Qty: 1 on 08/08/2019 by Carlos Alberto Patterson MD Right: Knee [employer] 03/07/2024 5551-L-350 / / [id number] Care Teams Inspector Barrel Relationship Specialty Start Date End Date Randa Wick MD [address] [place] [id number] PCP - General Internal Medicine 07/23/19
== END 2025-10-15 18:10 | disposition home or self-care (01) ==
LOC: HO.HGI 15:57
PROVIDERS: PCP Internal Medicine; Visit Provider Nurse Practitioner Family
DX: K52.9 Noninfective gastroenteritis and colitis, unspecified (principal); R14.0 Abdominal distension (gaseous); K21.9 Gastro-esophageal reflux disease without esophagitis; Z98.890 Other specified postprocedural states
CPT/HCPCS: 99213